=== PATIENT | male | born 1955 | race Caucasian/White ===

== ENCOUNTER 2017-10-30 03:06 | Inpatient (IN) | payer MEDICAID ==
[2017-10-30] VITALS (8 sets, daily range): BP systolic 120–146; BP diastolic 58–91
[~2017-10-30] VITALS: Ht 177.8 cm; Wt 81.8 kg
[2017-10-30] MEDS ORDERED: HYDROmorphone 1mg/ml Carpuject IVP ONE (03:15)
--- NOTE | 2017-10-30 03:19 | Emergency Room Report ---
History of Present Illness General Chief Complaint: Chest Pain Source: Patient, EMS Present Illness HPI Is a 62-year-old male with no past medical history. He presents with chief complaint of chest pain. Onset was about one half hours ago. He was walking from a restaurant when he started developing sharp pain in his left chest area. Rated to his neck. Was also short of breath. Pain is sharp 10 out of 10. No nausea no vomiting. No fever or chills. He was at [facility] last week for swelling in discoloration to his left leg. Workup is negative for DVT. Labs are unremarkable. He was treated with medication and given crutches. For his chest pain, onset was acute. EMS gave him aspirin and nitroglycerin without much relief. Allergies: Coded Allergies: No Known Allergies (Unverified , 10/30/17) Patient History Past Medical History: see triage record, old chart reviewed Past Surgical History: none Pertinent Family History: none Social History: Denies: smoking Immunizations: other Reviewed Nursing Documentation: PMH: Agreed, PSxH: Agreed Nursing Documentation-PMH Past Medical History: No Stated History Review of Systems Eye: Denies: eye pain, blurred vision ENT: Denies: ear pain, nose congestion, throat swelling Respiratory: Denies: cough, shortness of breath Cardiovascular: Reports: chest pain, Denies: palpitations Gastrointestinal: Denies: abdominal pain, diarrhea, nausea, vomiting Musculoskeletal: Denies: back pain, joint pain Skin: Denies: rash Neurological: Denies: headache, numbness Endocrine: Denies: increased thirst, increased urine Hematologic/Lymphatic: Denies: easy bruising All Other Systems: negative except mentioned in HPI Physical Exam Vital Signs Date Time Temp Pulse Resp B/P (MAP) Pulse Ox O2 Delivery O2 Flow Rate FiO2 10/30/17 03:06 97.5 111 20 170/98 99 Room Air vitals with tachycardia and high blood pressure Sp02 EP Interpretation: reviewed, normal General Appearance: well appearing, no apparent distress, alert Head: normocephalic, atraumatic Eyes: bilateral eye PERRL, bilateral eye EOMI ENT: hearing grossly normal, normal pharynx Neck: full range of motion, supple, no meningismus Respiratory: lungs clear, normal breath sounds, other - Left chest tender to palpation Cardiovascular #1: regular rate, rhythm, no murmur Gastrointestinal: normal bowel sounds, non tender, no mass, no organomegaly, no bruit, non-distended Musculoskeletal: back normal, gait/station normal, normal range of motion Psychiatric: mood/affect normal Skin: warm/dry Medical Decision Making Diagnostic Impression: Primary Impression: Pulmonary emboli Qualified Codes: I26.99 - Other pulmonary embolism without acute cor pulmonale Additional Impression: Pulmonary infarct ER Course Patient presents with acute onset of chest pain. CT scan showed small to moderate bilateral pulmonary emboli. He also has a left lower lobe pulmonary infarct. This would explain his pain to the left lower lobe area. He was at [facility] in October 13 for acute onset of left leg swelling and discoloration. Workup was negative including DVT study. Since then he's been on crutches for his pain. This may have cause immobilization resulting in a thrombus. He is hemodynamically stable with normal pulse and normal oxygenation. Lovenox given. Will admit for further workup. Lab Results Impression labs unremarkable EKG Diagnostic Results Rate: normal Rhythm: NSR ST Segments: no acute changes Rhythm Strip Diag. Results Rhythm Strip Time: 03:19 EP Interpretation: yes Rate: 93 Rhythm: NSR, no PVC's, no ectopy Chest X-Ray Diagnostic Results Chest X-Ray Diagnostic Results : Chest X-Ray Ordered: Yes # of Views/Limited/Complete: 1 View Indication: Chest Pain EP Interpretation: Yes Interpretation: no consolidation, no effusion, no pneumothorax, no acute cardiopulmonary disease Impression: No acute disease Electronically Signed by: Dada Figueroa MD CT/MRI/US Diagnostic Results CT/MRI/US Diagnostic Results : Imaging Test Ordered: CT chest Impression Read by radiologist. Small to moderate burn of bilateral pulmonary emboli. The floor and lateral pulmonary infarct. Last Vital Signs Date Time Temp Pulse Resp B/P (MAP) Pulse Ox O2 Delivery O2 Flow Rate FiO2 10/30/17 03:06 97.5 111 20 170/98 99 Room Air Status: improved Disposition: ADMITTED INPATIENT Condition: Serious DADA FIGUEROA M.D. Oct 30, 2017 03:19
[2017-10-30 03:39] LABS: BASOPHILS % (AUTO) 0.9 % (0.0-2.0); EOSINOPHILS % (AUTO) 0.7 % (0.0-3.0); HEMATOCRIT 45.3 % (42.0-52.0); HEMOGLOBIN 14.8 G/DL (14.2-18.0); LYMPHOCYTES % (AUTO) 13.1 % (20.0-45.0); MEAN CORPUSCULAR VOLUME 89 FL (80-99); MONOCYTES % (AUTO) 12.7 % (1.0-10.0); NEUTROPHILS % (AUTO) 72.6 % (45.0-75.0); PLATELET COUNT 340 K/UL (150-450); RED BLOOD COUNT 5.12 M/UL (4.70-6.10); RED CELL DISTRIBUTION WIDTH 11.7 % (11.6-14.8); WHITE BLOOD COUNT 11.7 K/UL (4.8-10.8)
[2017-10-30 03:41] LABS: APPEARANCE,URINE CLEAR; BILIRUBIN, URINE NEGATIVE (NEGATIVE); GLUCOSE, URINE (UA) NEGATIVE (NEGATIVE); KETONES,URINE NEGATIVE (NEGATIVE); LEUKOCYTE ESTERASE ,URINE NEGATIVE (NEGATIVE); NITRITE,URINE NEGATIVE (NEGATIVE); PH,URINE 6 (4.5-8.0); PROTEIN,URINE NEGATIVE (NEGATIVE); UROBILINOGEN,URINE NORMAL MG/DL (0.0-1.0)
[2017-10-30 03:42] LABS: COLOR,URINE YELLOW
[2017-10-30 03:50] LABS: ANION GAP 8 mmol/L (5-15); BLOOD UREA NITROGEN 14 mg/dL (7-18); CALCIUM 8.8 MG/DL (8.5-10.1); CARBON DIOXIDE 27 MMOL/L (21-32); CHLORIDE 101 MMOL/L (98-107); POTASSIUM 3.8 MMOL/L (3.5-5.1); SODIUM 136 MMOL/L (136-145)
[2017-10-30 04:04] LABS: CKMB 1.4 NG/ML (0.0-3.6); CREATINE KINASE 90 U/L (26-308)
[2017-10-30] MEDS ORDERED: Enoxaparin 80mg Inj SUBQ ONE (05:15)
[2017-10-30] MEDS ORDERED: NKM (05:35)
[2017-10-30] MEDS ORDERED: CEPHALEXIN500 MG ORAL (05:48)
[2017-10-30] MEDS ORDERED: Mylanta II UD 30ml ORAL PRN (06:45)
[2017-10-30] MEDS ORDERED: Miralax 17gm pkt ORAL PRN (06:45)
[2017-10-30] MEDS ORDERED: Zolpidem 5mg tab ORAL PRN (06:45)
[2017-10-30] MEDS ORDERED: LORazepam Inj 2mg/ml 1ml IV PRN (06:45)
[2017-10-30 08:11] LABS: BASOPHILS % (AUTO) 0.6 % (0.0-2.0); EOSINOPHILS % (AUTO) 0.7 % (0.0-3.0); HEMATOCRIT 43.4 % (42.0-52.0); LYMPHOCYTES % (AUTO) 16.8 % (20.0-45.0); MEAN CORPUSCULAR VOLUME 89 FL (80-99); MONOCYTES % (AUTO) 14.7 % (1.0-10.0); NEUTROPHILS % (AUTO) 67.1 % (45.0-75.0); PLATELET COUNT 290 K/UL (150-450); RED BLOOD COUNT 4.86 M/UL (4.70-6.10); RED CELL DISTRIBUTION WIDTH 11.7 % (11.6-14.8); WHITE BLOOD COUNT 10.2 K/UL (4.8-10.8)
--- NOTE | 2017-10-30 08:24 | Diagnostic Imaging Report ---
Indication: Chest pain Technique: Continuous helical transaxial imaging of the chest was obtained from the thoracic inlet to the upper abdomen during rapid intravenous contrast administration. Arterial phase of enhancement obtained. Coronal 2-D reformats were also obtained and maximum intensity projection images in multiple planes. Study obtained in a Siemens sensation [address] Automatic Exposure Control was utilized. Total Dose length Product (DLP): 1149.[address] Dose Index Volume (CTDIvol): 22.91 mGy Comparison: None Findings: Filling defects within bilateral pulmonary artery branch is demonstrated including right lower lobe and left lower lobe pulmonary artery branches extending into some of the segmental vessels. The main pulmonary artery and right and left pulmonary artery trunks appear clear. There is no evidence of right heart strain. Groundglass opacity noted at the periphery of the left lung base, nonspecific. Developing pulmonary infarct not excluded given the setting. No pleural effusion seen. No adenopathy or other abnormal fluid collections identified. Upper abdomen is unremarkable. Small left renal cyst noted incidentally. IMPRESSION: Bilateral pulmonary embolus as described above. [facility] has communicated the preliminary results to the Emergency Department. Their findings are largely concordant with this report. The CT scanner at [facility] is accredited by the [employer] and the scans are performed using dose optimization techniques as appropriate to a performed exam including Automatic Exposure control.
[2017-10-30] MEDS: Cephalexin 500mg cap ORAL SCH ×2 (09:33→19:53)
[2017-10-30] MEDS: Morphine Sulfate 2mg/ml Inj IVP PRN ×3 (09:35→19:53)
--- NOTE | 2017-10-30 10:11 | Diagnostic Imaging Report ---
Indication: Dyspnea Comparison: None A single view chest radiograph was obtained. Findings: Cardiomediastinal appearance is within normal limits for age. Pulmonary vascularity is appropriate. The diaphragmatic contour is smooth and costophrenic angles are sharp. No pleural effusions are identified. The bones are unremarkable. Impression: No acute findings
--- NOTE | 2017-10-30 11:48 | Consultation ---
History of Present Illness General Date patient seen: Oct 30, 2017 Chief Complaint: Chest Pain Referring physician: Dr. Florence Reason for Consultation: PE Present Illness HPI 62-year-old male with no past medical history presented with chief complaint of chest pain. Onset was about one half hours ago. He was at [facility] last week for swelling in discoloration to his left leg. Workup is negative for DVT. He had CT angio in ER showing bilateral pulmonary embolism. Allergies: Coded Allergies: No Known Allergies (Unverified , 10/30/17) Medication History Scheduled Cephalexin* (Keflex*), 500 MG ORAL EVERY 12 HOURS, (Reported) Patient History Healthcare decision maker Resuscitation status Advanced Directive on File Review of Systems All Other Systems: negative except mentioned in HPI Physical Exam General Appearance: WD/WN Lines, tubes and drains: peripheral HEENT: normocephalic, atraumatic Neck: non-tender, normal alignment Respiratory/Chest: chest wall non-tender, lungs clear Breasts: no masses Cardiovascular/Chest: normal peripheral pulses, regular rhythm, regularly irregular Abdomen: normal bowel sounds Genitourinary/Rectal: normal genital exam Last 24 Hour Vital Signs Date Time Temp Pulse Resp B/P (MAP) Pulse Ox O2 Delivery O2 Flow Rate FiO2 10/30/17 08:00 97.7 75 20 141/88 99 Room Air 10/30/17 06:20 Room Air 10/30/17 06:20 97.7 84 20 146/91 98 Room Air 10/30/17 06:12 97.5 90 13 120/91 100 Room Air 99 10/30/17 05:29 90 13 120/91 100 Room Air 10/30/17 03:32 84 20 Room Air 99 10/30/17 03:32 97.5 84 20 126/74 99 Room Air 10/30/17 03:06 97.5 111 20 170/98 99 Room Air Intake and Output 10/29/17 10/30/17 19:00 07:00 # Voids 1 Laboratory Tests Test 10/30/17 03:35 10/30/17 03:40 10/30/17 08:00 White Blood Count 11.7 K/UL (4.8-10.8) H 10.2 K/UL (4.8-10.8) Red Blood Count 5.12 M/UL (4.70-6.10) 4.86 M/UL (4.70-6.10) Hemoglobin 14.8 G/DL (14.2-18.0) 14.0 G/DL (14.2-18.0) L Hematocrit 45.3 % (42.0-52.0) 43.4 % (42.0-52.0) Mean Corpuscular Volume 89 FL (80-99) 89 FL (80-99) Mean Corpuscular Hemoglobin 28.8 PG (27.0-31.0) 28.8 PG (27.0-31.0) Mean Corpuscular Hemoglobin Concent 32.6 G/DL (32.0-36.0) 32.4 G/DL (32.0-36.0) Red Cell Distribution Width 11.7 % (11.6-14.8) 11.7 % (11.6-14.8) Platelet Count 340 K/UL (150-450) 290 K/UL (150-450) Mean Platelet Volume 6.6 FL (6.5-10.1) 7.1 FL (6.5-10.1) Neutrophils (%) (Auto) 72.6 % (45.0-75.0) 67.1 % (45.0-75.0) Lymphocytes (%) (Auto) 13.1 % (20.0-45.0) L 16.8 % (20.0-45.0) L Monocytes (%) (Auto) 12.7 % (1.0-10.0) H 14.7 % (1.0-10.0) H Eosinophils (%) (Auto) 0.7 % (0.0-3.0) 0.7 % (0.0-3.0) Basophils (%) (Auto) 0.9 % (0.0-2.0) 0.6 % (0.0-2.0) Sodium Level 136 MMOL/L (136-145) Potassium Level 3.8 MMOL/L (3.5-5.1) Chloride Level 101 MMOL/L (98-107) Carbon Dioxide Level 27 MMOL/L (21-32) Anion Gap 8 mmol/L (5-15) Blood Urea Nitrogen 14 mg/dL (7-18) Creatinine 1.0 MG/DL (0.55-1.30) Estimat Glomerular Filtration Rate > 60 mL/min (>60) Glucose Level 130 MG/DL (74-106) H Calcium Level 8.8 MG/DL (8.5-10.1) Total Creatine Kinase 90 U/L (26-308) Creatine Kinase MB 1.4 NG/ML (0.0-3.6) Creatine Kinase MB Relative Index 1.5 Troponin I 0.000 ng/mL (0.000-0.056) 0.000 ng/mL (0.000-0.056) Urine Color Yellow Urine Appearance Clear Urine pH 6 (4.5-8.0) Urine Specific [place] 1.015 (1.005-1.035) Urine Protein Negative (NEGATIVE) Urine Glucose (UA) Negative (NEGATIVE) Urine Ketones Negative (NEGATIVE) Urine Occult Blood Negative (NEGATIVE) Urine Nitrite Negative (NEGATIVE) Urine Bilirubin Negative (NEGATIVE) Urine Urobilinogen Normal MG/DL (0.0-1.0) Urine Leukocyte Esterase Negative (NEGATIVE) Urine Opiates Screen Negative (NEGATIVE) Urine Barbiturates Screen Negative (NEGATIVE) Phencyclidine (PCP) Screen Negative (NEGATIVE) Urine Amphetamines Screen Negative (NEGATIVE) Urine Benzodiazepines Screen Negative (NEGATIVE) Urine Cocaine Screen Negative (NEGATIVE) Urine Marijuana (THC) Screen Negative (NEGATIVE) Activated Partial Thromboplast Time 35 SEC (23-33) H Height (Feet): 5 Height (Inches): 10.00 Weight (Pounds): 170 Medications Current Medications Medications (Trade) Dose Ordered Sig/Rinku Route PRN Reason Start Time Stop Time Status Last Admin Dose Admin Acetaminophen (Tylenol) 650 mg Q4H PRN ORAL fever 10/30/17 06:45 11/29/17 06:44 Al Hydroxide/Mg Hydroxide (Mylanta II) 30 ml Q6H PRN ORAL dyspepsia 10/30/17 06:45 11/29/17 06:44 Cephalexin (Keflex) 500 mg Q12HR@0800,2000 ORAL 10/30/17 08:00 10/31/17 20:01 10/30/17 09:33 Dextrose (Dextrose 50%) STAT PRN IV Hypoglycemia 10/30/17 06:45 11/29/17 06:44 Heparin Sodium (Porcine) (Heparin 5000 units/ml) 5,000 units ONCE ONCE IV 10/30/17 17:00 10/30/17 17:01 Heparin Sodium/ Dextrose 500 ml @ 27.76 mls/ hr adjust per protocol IV 10/30/17 17:00 11/29/17 16:59 Lorazepam (Ativan 2mg/ml 1ml) 0.5 mg Q4H PRN IV For Anxiety 10/30/17 06:45 11/06/17 06:44 Morphine Sulfate (Morphine Sulfate) 1 mg Q4H PRN IVP For Pain 10/30/17 06:45 11/06/17 06:44 10/30/17 09:35 Ondansetron HCl (Zofran) 4 mg Q6H PRN IVP Nausea & Vomiting 10/30/17 06:45 11/29/17 06:44 Polyethylene Glycol (Miralax) 17 gm HSPRN PRN ORAL Constipation 10/30/17 06:45 11/29/17 06:44 Zolpidem Tartrate (Ambien) 5 mg HSPRN PRN ORAL Insomnia 10/30/17 06:45 11/06/17 06:44 Assessment/Plan Problem List: (1) Pulmonary emboli ICD Codes: I26.99 - Other pulmonary embolism without acute cor pulmonale SNOMED: [id number] Qualifiers: Qualified Codes: I26.99 - Other pulmonary embolism without acute cor pulmonale Assessment/Plan iv heparin vascular studies hematology work up to find out the etiology of the PE DANAE SHINE Oct 30, 2017 11:48
--- NOTE | 2017-10-30 12:37 | Cardiology Report ---
APPROVED REPORT EKG Measurement Heart [id number] Normal sinus rhythm Normal ECG
--- NOTE | 2017-10-30 12:49 | Cardiology Report ---
APPROVED REPORT EXAM: Two-dimensional and M-mode echocardiogram with Doppler and color Doppler. INDICATION Left ventricular function M-Mode DIMENSIONS IVSd0.7 (0.7-1.1cm)Left Atrium (MM)3.3 (1.6-4.0cm) LVDd4.8 (3.5-5.6cm)Aortic Root3.2 (2.0-3.7cm) PWd0.9 (0.7-1.1cm)Aortic Cusp Exc.2.0 (1.5-2.0cm) LVDs3.4 (2.5-4.0cm) PWs0.9 cm Normal left ventricular chamber size, systolic function and wall motion. Left ventricular ejection fraction estimated to be 55-60%. No evidence of left ventricular hypertrophy. No evidence of pericardial or pleural effusion. Mild bi-atrial enlargement by 2D. Focal aortic valve sclerosis with adequate cusp excursion. Thickened mitral valve leaflets with normal excursion. Mild mitral annulus and aortic root calcification. Pulmonic valve not well visualized. Normal tricuspid valve structure. IVC dilated at 2.3cm non-collapsible with respiration indicate increased RA pressure. A color flow and spectral Doppler study was performed and revealed: Trace aortic regurgitation. No mitral regurgitation. Mitral diastolic velocities suggest reduced left ventricular relaxation c/w diastolic dysfunction grade 1. Trace tricuspid regurgitation.
[2017-10-30] MEDS ORDERED: Heparin 25,000u/D5W 500ml 500 ML IV SCH (17:00)
[2017-10-30] MEDS ORDERED: Heparin 5000 units/ml inj IV ONE (17:00)
--- NOTE | 2017-10-30 18:30 | History and Physical Report ---
DATE OF ADMISSION: 10/30/2017 TIME SEEN: 2 p.m. CONSULTANTS: 1. Crow Arreola M.D. 2. Brian Francis M.D. 3. Ramon Maldonado D.P.M. CHIEF COMPLAINT: Bilateral PE and left toe injury. BRIEF HISTORY: This is a 62-year-old male, who lives at home, presents with substernal chest pain for one day, came to [place] ER and slightly short of breath. He came in to [place], diagnosed with bilateral PE, and admitted to [facility] for further care. Currently, he is slightly anxious in bed, oriented x3, and in no acute distress. PAST MEDICAL HISTORY: Includes recent left toe injury. PAST SURGICAL HISTORY: Shoulder bilaterally. MEDICATIONS: Include heparin, Keflex, Tylenol, morphine, MiraLAX, Zofran, Ambien, and Mylanta. ALLERGIES: Denies. SOCIAL HISTORY: No smoking. Occasional alcohol. No intravenous drug abuse. FAMILY HISTORY: Noncontributory. REVIEW OF SYSTEMS: Slight chest pain. Slightly short of breath. No nausea, vomiting, or diarrhea. PHYSICAL EXAMINATION: GENERAL: Slightly anxious in bed, oriented x3, and in no acute distress. VITAL SIGNS: Temperature 97, pulse 80, respirations 20, and blood pressure 123/74. CARDIOVASCULAR: No murmurs. LUNGS: Distant and clear. ABDOMEN: Bowel sounds positive. Nontender. Nondistended. EXTREMITIES: No cyanosis, clubbing, or edema. Left big toenail slightly bruised, slightly swollen, and red. NEUROLOGIC: The patient moves all extremities. Slightly weak. LABORATORY DATA: CBC is normal. BMP show glucose 130, otherwise BMP is normal. INR, PTT is 35. Urine tox is negative. Urinalysis is negative. ASSESSMENT: 1. Bilateral pulmonary embolism. 2. Left toe injury. 3. Chest pain. 4. Shortness of breath. PLAN: 1. O2 and pulmonary treatment as needed. 2. Antibiotics as ordered. 3. Wound care. 4. Anticoagulate per Hematology. 5. Dr. Arreola, Dr. Francis, and Dr. Maldonado to consult. 6. We will continue to follow this patient. Jama Florence D.O. DR: ARSH JOB#: [id number] CC:
[2017-10-30] MEDS ORDERED: Warfarin Sodium 7.5mg ORAL ONE (23:00)
[2017-10-31] VITALS: BP 128/89
[2017-10-31] MEDS ORDERED: Heparin Sod 1000 units/ml 10ml IV ONE (01:30)
[2017-10-31] MEDS: Heparin 25,000u/D5W 500ml 500 ML IV SCH ×2 (01:34→12:53)
[2017-10-31 04:00] VITALS: BP 125/77
--- NOTE | 2017-10-31 06:47 | Consultation ---
DATE OF CONSULTATION: 10/30/2017 HEMATOLOGY/ONCOLOGY CONSULTATION CONSULTING PHYSICIAN: Brian Francis M.D. REQUESTING PHYSICIAN: Jama Florence M.D. REASON FOR CONSULTATION: Evaluation of pulmonary emboli. IDENTIFICATION: Dear Dr. Jama Florence, The patient is a pleasant 62-year-old male with no past medical history, at this time presents with chest pain as a chief complaint, 00:30 onset about one and half hours ago at [facility] last week, discoloration of the left leg, negative DVT. Workup in the ER, he had a CAT scan, which showed bilateral pulmonary emboli. Infectious Disease Service was consulted for further evaluation and treatment as well as Pulmonary team. PAST MEDICAL HISTORY: As noted above, left 00:57 injury. PAST SURGICAL HISTORY: 00:59 shoulder repair. MEDICATIONS: Heparin, Keflex, Tylenol, morphine, MiraLAX, Zofran, Mylanta, and Ambien. ALLERGIES: No known drug allergies. SOCIAL HISTORY: No alcohol, tobacco, or illicit drug use. FAMILY HISTORY: Noncontributory. REVIEW OF SYSTEMS: PULMONARY: 01:11 chest pain, otherwise negative. A 12-point review of systems was completed, otherwise negative. PHYSICAL EXAMINATION: VITAL SIGNS: Reviewed. GENERAL: No acute distress. PULMONARY: Decreased breath sounds. CARDIOVASCULAR: Regular rate. No S3 or S4. ABDOMEN: Soft, nontender, and nondistended. EXTREMITIES: A 1+ edema. LABORATORY DATA: WBC 10.2, hemoglobin 01:26, hematocrit 01:27, and platelet count 290,000. INR reviewed. PTT is 35. Glucose 130. Troponin is 0.020. ASSESSMENT AND RECOMMENDATIONS: 1. Pulmonary emboli, currently is on heparin drip. Consider to begin the patient on Coumadin with INR goal between 2 and 3. Outpatient management. Also obtain hypercoagulable panel. 2. Anemia, secondary to chronic disease, mild. 3. Coagulopathy, secondary to use of Coumadin. 4. Left 02:12 injury in the past. I appreciate the consultation. Thank you for consultation. Brian Francis M.D. DR: OREN JOB#: [id number] CC:
[2017-10-31 07:42] LABS: BASOPHILS % (AUTO) 0.8 % (0.0-2.0); EOSINOPHILS % (AUTO) 0.6 % (0.0-3.0); HEMATOCRIT 45.7 % (42.0-52.0); HEMOGLOBIN 14.6 G/DL (14.2-18.0); LYMPHOCYTES % (AUTO) 12.1 % (20.0-45.0); MEAN CORPUSCULAR VOLUME 89 FL (80-99); MONOCYTES % (AUTO) 13.5 % (1.0-10.0); NEUTROPHILS % (AUTO) 72.9 % (45.0-75.0); PLATELET COUNT 302 K/UL (150-450); RED BLOOD COUNT 5.15 M/UL (4.70-6.10); RED CELL DISTRIBUTION WIDTH 11.9 % (11.6-14.8); WHITE BLOOD COUNT 11.1 K/UL (4.8-10.8)
[2017-10-31 08:00] VITALS: BP 142/81
[2017-10-31 08:04] LABS: ALANINE AMINOTRANSFERASE 17 U/L (12-78); ALBUMIN 2.8 G/DL (3.4-5.0); ALBUMIN/GLOBULIN RATIO 0.7 (1.0-2.7); ALKALINE PHOSPHATASE 74 U/L (46-116); ANION GAP 7 mmol/L (5-15); ASPARTATE AMINO TRANSFERASE 21 U/L (15-37); BILIRUBIN,TOTAL 0.6 MG/DL (0.2-1.0); BLOOD UREA NITROGEN 9 mg/dL (7-18); CALCIUM 8.8 MG/DL (8.5-10.1); CARBON DIOXIDE 26 MMOL/L (21-32); CHLORIDE 103 MMOL/L (98-107); CHOLESTEROL 167 MG/DL (< 200); CREATININE 0.9 MG/DL (0.55-1.30); HDL CHOLESTEROL 55 MG/DL (40-60); POTASSIUM 4.2 MMOL/L (3.5-5.1); SODIUM 136 MMOL/L (136-145); TRIGLYCERIDES 51 MG/DL (30-150)
[2017-10-31] MEDS: Cephalexin 500mg cap ORAL SCH ×2 (08:10→21:17)
[2017-10-31 12:00] VITALS: BP 136/78
--- NOTE | 2017-10-31 12:48 | Pulmonology Progress Note ---
Assessment/Plan Problems: (1) Pulmonary emboli Assessment/Plan on coumadin add flexeril pain control Subjective Interval Events: c/o spasm at left chest side Allergies: Coded Allergies: No Known Allergies (Unverified , 10/30/17) Objective Last 24 Hour Vital Signs Date Time Temp Pulse Resp B/P (MAP) Pulse Ox O2 Delivery O2 Flow Rate FiO2 10/31/17 08:00 97.5 83 19 142/81 97 Room Air 10/31/17 08:00 84 10/31/17 04:00 74 10/31/17 04:00 98.2 79 20 125/77 98 Room Air 10/31/17 01:11 75 18 Room Air 10/31/17 00:00 98.0 79 17 128/89 95 10/31/17 00:00 69 10/30/17 20:43 98.4 10/30/17 20:01 99.0 76 18 127/58 96 Room Air 10/30/17 20:00 98.4 74 18 144/91 99 10/30/17 20:00 78 10/30/17 16:00 98.4 72 20 140/81 97 Room Air 10/30/17 16:00 90 Intake and Output 10/30/17 10/31/17 19:00 07:00 Intake Total 270 ml 527.76 ml Output Total 1900 ml Balance -1630 ml 527.76 ml Intake Oral 270 ml 500 ml IV Total 27.76 ml Output Urine Total 1900 ml # Voids 3 Objective General Appearance: wn/wd/wh Lines, tubes and drains: peripheral HEENT: normocephalic, anicteric Neck: non-tender, normal alignment Respiratory/Chest: chest wall non-tender, lungs clear Breasts: no masses Cardiovascular/Chest: normal peripheral pulses Abdomen: normal bowel sounds Genitourinary/Rectal: normal genital exam Extremities: normal range of motion General Appearance: WD/WN Laboratory Tests 10/30/17 21:15: Hemoglobin A [Pending], Hemoglobin A2 [Pending], Hemoglobin C [Pending], Hemoglobin F () [Pending], Hemoglobin S [Pending], Variant Hemoglobin [ Pending], Hemoglobin Electrophoresis Interp [Pending], Hemoglobin Interpretation [Pending], Hemoglobin Solubility [Pending], Prothrombin Time 10.4 , Prothromb Time International Ratio 1.0, Protein C Activity [Pending], Protein S Antigen [Pending], Free Protein S [Pending], Anti-Thrombin III Activity [ Pending], Factor V Mutation [Pending], Prothrombin Gene Mutation [Pending], Prothrombin Gene Shared Component [Pending], Anti-Cardiolipin IgM Antibody [ Pending] 10/31/17 00:30: Activated Partial Thromboplast Time 56H 10/31/17 07:25: Prothrombin Time 10.6, Prothromb Time International Ratio 1.0, Activated Partial Thromboplast Time 74H, White Blood Count 11.1H, Red Blood Count 5.15, Hemoglobin 14.6, Hematocrit 45.7, Mean Corpuscular Volume 89, Mean Corpuscular Hemoglobin 28.3, Mean Corpuscular Hemoglobin Concent 32.0, Red Cell Distribution Width 11.9, Platelet Count 302, Mean Platelet Volume 6.8, Neutrophils (%) (Auto) 72.9, Lymphocytes (%) (Auto) 12.1L, Monocytes (%) (Auto) 13.5H, Eosinophils (%) (Auto) 0.6, Basophils (%) (Auto) 0.8, Sodium Level 136, Potassium Level 4.2, Chloride Level 103, Carbon Dioxide Level 26, Anion Gap 7, Blood Urea Nitrogen 9, Creatinine 0.9, Estimat Glomerular Filtration Rate > 60, Glucose Level 107H, Calcium Level 8.8, Total Bilirubin 0.6, Aspartate Amino Transf (AST/SGOT) 21, Alanine Aminotransferase (ALT/SGPT) 17, Alkaline Phosphatase 74, Troponin I 0.017, Total Protein 7.0, Albumin 2.8L, Globulin 4.2 , Albumin/Globulin Ratio 0.7L, Triglycerides Level 51, Cholesterol Level 167, LDL Cholesterol 106H, HDL Cholesterol 55, Cholesterol/HDL Ratio 3.0L Current Medications Medications (Trade) Dose Ordered Sig/Rinku Route PRN Reason Start Time Stop Time Status Last Admin Dose Admin Acetaminophen (Tylenol) 650 mg Q4H PRN ORAL fever 10/30/17 06:45 11/29/17 06:44 Al Hydroxide/Mg Hydroxide (Mylanta II) 30 ml Q6H PRN ORAL dyspepsia 10/30/17 06:45 11/29/17 06:44 Cephalexin (Keflex) 500 mg Q12HR@0800,2000 ORAL 10/30/17 08:00 10/31/17 20:01 10/31/17 08:10 Dextrose (Dextrose 50%) STAT PRN IV Hypoglycemia 10/30/17 06:45 11/29/17 06:44 Heparin Sodium/ Dextrose 500 ml @ 30.844 mls/ hr adjust per protocol IV 10/31/17 01:30 11/29/17 16:59 10/31/17 01:34 Lorazepam (Ativan 2mg/ml 1ml) 0.5 mg Q4H PRN IV For Anxiety 10/30/17 06:45 11/06/17 06:44 Morphine Sulfate (Morphine Sulfate) 1 mg Q4H PRN IVP For Pain 10/30/17 06:45 11/06/17 06:44 10/30/17 19:53 Ondansetron HCl (Zofran) 4 mg Q6H PRN IVP Nausea & Vomiting 10/30/17 06:45 11/29/17 06:44 Polyethylene Glycol (Miralax) 17 gm HSPRN PRN ORAL Constipation 10/30/17 06:45 11/29/17 06:44 Warfarin Sodium (Coumadin per pharmacy) 1 ea DAILY PRN MISC Per rx protocol 10/30/17 20:45 11/29/17 20:44 Warfarin Sodium (Coumadin) 7.5 mg COUMADIN ONCE ORAL 10/31/17 17:00 10/31/17 17:01 Zolpidem Tartrate (Ambien) 5 mg HSPRN PRN ORAL Insomnia 10/30/17 06:45 11/06/17 06:44 DANAE SHINE Oct 31, 2017 12:48
[2017-10-31] MEDS: Cyclobenzaprine 10mg Tab ORAL SCH ×2 (13:02→18:00)
[2017-10-31 16:00] VITALS: BP 134/78
[2017-10-31] MEDS ORDERED: Warfarin Sodium 7.5mg ORAL ONE (17:00)
[2017-10-31 20:00] VITALS: BP 119/24
--- NOTE | 2017-10-31 20:54 | General Progress Note ---
Assessment/Plan Problem List: (1) Pulmonary infarct ICD Codes: I26.99 - Other pulmonary embolism without acute cor pulmonale SNOMED: 97595368 (2) Pulmonary emboli ICD Codes: I26.99 - Other pulmonary embolism without acute cor pulmonale SNOMED: 54993345 Qualifiers: Qualified Codes: I26.99 - Other pulmonary embolism without acute cor pulmonale Status: progressing Assessment/Plan edema le pulmonary emboli anti coagulation per heme/onc and pulmonary Subjective ROS Limited/Unobtainable: Yes Allergies: Coded Allergies: No Known Allergies (Unverified , 10/30/17) Objective Last 24 Hour Vital Signs Date Time Temp Pulse Resp B/P (MAP) Pulse Ox O2 Delivery O2 Flow Rate FiO2 10/31/17 20:08 75 18 Room Air 10/31/17 16:00 83 10/31/17 16:00 97.6 81 19 134/78 100 Room Air 10/31/17 14:01 97.5 10/31/17 12:00 97.1 81 18 136/78 100 Room Air 10/31/17 12:00 82 10/31/17 08:00 97.5 83 19 142/81 97 Room Air 10/31/17 08:00 84 10/31/17 04:00 74 10/31/17 04:00 98.2 79 20 125/77 98 Room Air 10/31/17 01:11 75 18 Room Air 10/31/17 00:00 98.0 79 17 128/89 95 10/31/17 00:00 69 Intake and Output 10/30/17 10/31/17 19:00 07:00 Intake Total 270 ml 558.604 ml Output Total 1900 ml Balance -1630 ml 558.604 ml Intake Oral 270 ml 500 ml IV Total 58.604 ml Output Urine Total 1900 ml # Voids 3 Laboratory Tests 10/30/17 21:15: Hemoglobin A [Pending], Hemoglobin A2 [Pending], Hemoglobin C [Pending], Hemoglobin F () [Pending], Hemoglobin S [Pending], Variant Hemoglobin [ Pending], Hemoglobin Electrophoresis Interp [Pending], Hemoglobin Interpretation [Pending], Hemoglobin Solubility [Pending], Prothrombin Time 10.4 , Prothromb Time International Ratio 1.0, Protein C Activity [Pending], Protein S Antigen [Pending], Free Protein S [Pending], Anti-Thrombin III Activity [ Pending], Factor V Mutation [Pending], Prothrombin Gene Mutation [Pending], Prothrombin Gene Shared Component [Pending], Anti-Cardiolipin IgM Antibody [ Pending] 10/31/17 00:30: Activated Partial Thromboplast Time 56H 10/31/17 07:25: Prothrombin Time 10.6, Prothromb Time International Ratio 1.0, Activated Partial Thromboplast Time 74H, White Blood Count 11.1H, Red Blood Count 5.15, Hemoglobin 14.6, Hematocrit 45.7, Mean Corpuscular Volume 89, Mean Corpuscular Hemoglobin 28.3, Mean Corpuscular Hemoglobin Concent 32.0, Red Cell Distribution Width 11.9, Platelet Count 302, Mean Platelet Volume 6.8, Neutrophils (%) (Auto) 72.9, Lymphocytes (%) (Auto) 12.1L, Monocytes (%) (Auto) 13.5H, Eosinophils (%) (Auto) 0.6, Basophils (%) (Auto) 0.8, Sodium Level 136, Potassium Level 4.2, Chloride Level 103, Carbon Dioxide Level 26, Anion Gap 7, Blood Urea Nitrogen 9, Creatinine 0.9, Estimat Glomerular Filtration Rate > 60, Glucose Level 107H, Calcium Level 8.8, Total Bilirubin 0.6, Aspartate Amino Transf (AST/SGOT) 21, Alanine Aminotransferase (ALT/SGPT) 17, Alkaline Phosphatase 74, Troponin I 0.017, Total Protein 7.0, Albumin 2.8L, Globulin 4.2 , Albumin/Globulin Ratio 0.7L, Triglycerides Level 51, Cholesterol Level 167, LDL Cholesterol 106H, HDL Cholesterol 55, Cholesterol/HDL Ratio 3.0L Height (Feet): 5 Height (Inches): 10.00 Weight (Pounds): 170 Yolanda Littlejohn MD Oct 31, 2017 20:54
--- NOTE | 2017-10-31 23:35 | General Progress Note ---
Assessment/Plan Status: stable Assessment/Plan 1. Pulmonary emboli, currently is on heparin drip. --> Consider to begin the patient on Coumadin with INR goal between 2 and 3. --> Outpatient management. --> Also obtain hypercoagulable panel. 2. Anemia, secondary to chronic disease, mild. --> Hemoglobin stable, does not need blood transfusion at the moment. 3. Coagulopathy, secondary to use of Coumadin. Subjective Date patient seen: Oct 31, 2017 Constitutional: Denies: no symptoms, chills, diaphoresis, fever, malaise, weakness, other HEENT: Denies: no symptoms, eye pain, blurred vision, tearing, double vision, ear pain, ear discharge, nose pain, nose congestion, throat pain, throat swelling, mouth pain, mouth swelling, other Cardiovascular: Denies: no symptoms, chest pain, edema, irregular heart rate, lightheadedness, palpitations, syncope, other Respiratory: Denies: no symptoms, cough, orthopnea, shortness of breath, SOB with excertion, SOB at rest, sputum, stridor, wheezing, other Gastrointestinal/Abdominal: Denies: no symptoms, abdomen distended, abdominal pain, black stools, tarry stools, blood in stool, constipated, diarrhea, difficulty swallowing, nausea, poor appetite, poor fluid intake, rectal bleeding , vomiting, other Genitourinary: Denies: no symptoms, burning, discharge, frequency, flank pain, hematuria, incontinence, pain, urgency, other Allergies: Coded Allergies: No Known Allergies (Unverified , 10/30/17) Subjective On anticoagulation measures. H/H stable. Objective Last 24 Hour Vital Signs Date Time Temp Pulse Resp B/P (MAP) Pulse Ox O2 Delivery O2 Flow Rate FiO2 10/31/17 20:08 75 18 Room Air 10/31/17 20:00 98.6 75 20 119/24 96 Room Air 10/31/17 16:00 83 10/31/17 16:00 97.6 81 19 134/78 100 Room Air 10/31/17 14:01 97.5 10/31/17 12:00 97.1 81 18 136/78 100 Room Air 10/31/17 12:00 82 10/31/17 08:00 97.5 83 19 142/81 97 Room Air 1/19/18 08:00 84 10/31/17 04:00 74 10/31/17 04:00 98.2 79 20 125/77 98 Room Air 10/31/17 01:11 75 18 Room Air 10/31/17 00:00 98.0 79 17 128/89 95 10/31/17 00:00 69 Intake and Output 10/30/17 10/31/17 19:00 07:00 Intake Total 270 ml 558.604 ml Output Total 1900 ml Balance -1630 ml 558.604 ml Intake Oral 270 ml 500 ml IV Total 58.604 ml Output Urine Total 1900 ml # Voids 3 Laboratory Tests 10/31/17 00:30: Activated Partial Thromboplast Time 56H 10/31/17 07:25: Activated Partial Thromboplast Time 74H, White Blood Count 11.1H, Red Blood Count 5.15, Hemoglobin 14.6, Hematocrit 45.7, Mean Corpuscular Volume 89, Mean Corpuscular Hemoglobin 28.3, Mean Corpuscular Hemoglobin Concent 32.0, Red Cell Distribution Width 11.9, Platelet Count 302, Mean Platelet Volume 6.8, Neutrophils (%) (Auto) 72.9, Lymphocytes (%) (Auto) 12.1L, Monocytes (%) (Auto) 13.5H, Eosinophils (%) (Auto) 0.6, Basophils (%) (Auto) 0.8, Prothrombin Time 10.6, Prothromb Time International Ratio 1.0, Sodium Level 136, Potassium Level 4.2, Chloride Level 103, Carbon Dioxide Level 26, Anion Gap 7, Blood Urea Nitrogen 9, Creatinine 0.9, Estimat Glomerular Filtration Rate > 60, Glucose Level 107H, Calcium Level 8.8, Total Bilirubin 0.6, Aspartate Amino Transf (AST/ SGOT) 21, Alanine Aminotransferase (ALT/SGPT) 17, Alkaline Phosphatase 74, Troponin I 0.017, Total Protein 7.0, Albumin 2.8L, Globulin 4.2, Albumin/ Globulin Ratio 0.7L, Triglycerides Level 51, Cholesterol Level 167, LDL Cholesterol 106H, HDL Cholesterol 55, Cholesterol/HDL Ratio 3.0L Height (Feet): 5 Height (Inches): 10.00 Weight (Pounds): 170 General Appearance: no apparent distress Neck: supple Cardiovascular: normal rate, regular rhythm Respiratory/Chest: decreased breath sounds Abdomen: soft Kleynberg,Brian L. Oct 31, 2017 23:35
[2017-11-01 04:25] VITALS: BP 120/56
[2017-11-01] MEDS: Heparin 25,000u/D5W 500ml 500 ML IV SCH ×3 (05:29→20:08)
[2017-11-01] MEDS ORDERED: Heparin Sod 1000 units/ml 10ml IV ONE (06:00)
[2017-11-01] MEDS ORDERED: Heparin 5000 units/ml inj IV ONE (06:15)
--- NOTE | 2017-11-01 07:24 | Pulmonology Progress Note ---
Assessment/Plan Assessment/Plan ASSESSMENT Bilateral pulmonary emboli Possible developing pulmonary infarct-unlikely chest pain 2 to bilateral PE PLAN OF CARE Tele CTA chest with bilateral PE and possible developing pulm infarct heparin gtt and Coumadin to bridge to therapeutic INR , still subtherapeutic heme follows O2 prn HHN prn serial troponin negative lipid panel with elevated LDL-106, counseled on low fat low cholesterol diet pain management, Flexeril added to existing regimen ( not helping) started [place] prn ( patient reluctant to take Morphine) ECHO with pEF 55-60%, no LVH tox screen negative anticardiolipin IgM Ab pending case discussed and evaluated by supervising physician Subjective Allergies: Coded Allergies: No Known Allergies (Unverified , 10/30/17) Subjective with chest pain, intermittent SOB on heparin gtt Objective Last 24 Hour Vital Signs Date Time Temp Pulse Resp B/P (MAP) Pulse Ox O2 Delivery O2 Flow Rate FiO2 11/01/17 04:25 98.2 70 20 120/56 98 Room Air 11/01/17 04:00 73 11/01/17 00:00 80 10/31/17 20:08 75 18 Room Air 10/31/17 20:00 98.6 75 20 119/24 96 Room Air 10/31/17 20:00 74 10/31/17 16:00 83 10/31/17 16:00 97.6 81 19 134/78 100 Room Air 10/31/17 14:01 97.5 10/31/17 12:00 97.1 81 18 136/78 100 Room Air 10/31/17 12:00 82 10/31/17 08:00 97.5 83 19 142/81 97 Room Air 10/31/17 08:00 84 Intake and Output 10/31/17 11/01/17 19:00 07:00 Intake Total 1047.284 ml 277.636 ml Output Total 950 ml 1050 ml Balance 97.284 ml -772.364 ml Intake Oral 708 ml IV Total 339.284 ml 277.636 ml Output Urine Total 950 ml 1050 ml # Voids 1 General Appearance: WD/WN, no acute distress HEENT: normocephalic, atraumatic, anicteric, mucous membranes moist Respiratory/Chest: lungs clear, no respiratory distress, no accessory muscle use Cardiovascular: normal peripheral pulses, normal rate - SR on tele, no JVD Abdomen: normal bowel sounds, soft, non tender, non distended Extremities: no edema, pedal pulses normal Neurologic/Psychiatric: no motor/sensory deficits, alert, oriented x 3, responsive, normal mood/affect Musculoskeletal: normal muscle bulk Laboratory Tests 10/31/17 07:25: White Blood Count 11.1H, Red Blood Count 5.15, Hemoglobin 14.6, Hematocrit 45.7 , Mean Corpuscular Volume 89, Mean Corpuscular Hemoglobin 28.3, Mean Corpuscular Hemoglobin Concent 32.0, Red Cell Distribution Width 11.9, Platelet Count 302, Mean Platelet Volume 6.8, Neutrophils (%) (Auto) 72.9, Lymphocytes (% ) (Auto) 12.1L, Monocytes (%) (Auto) 13.5H, Eosinophils (%) (Auto) 0.6, Basophils (%) (Auto) 0.8, Prothrombin Time 10.6, Prothromb Time International Ratio 1.0, Activated Partial Thromboplast Time 74H, Sodium Level 136, Potassium Level 4.2, Chloride Level 103, Carbon Dioxide Level 26, Anion Gap 7, Blood Urea Nitrogen 9, Creatinine 0.9, Estimat Glomerular Filtration Rate > 60, Glucose Level 107H, Calcium Level 8.8, Total Bilirubin 0.6, Aspartate Amino Transf (AST/ SGOT) 21, Alanine Aminotransferase (ALT/SGPT) 17, Alkaline Phosphatase 74, Troponin I 0.017, Total Protein 7.0, Albumin 2.8L, Globulin 4.2, Albumin/ Globulin Ratio 0.7L, Triglycerides Level 51, Cholesterol Level 167, LDL Cholesterol 106H, HDL Cholesterol 55, Cholesterol/HDL Ratio 3.0L 11/01/17 04:00: Prothrombin Time 10.8, Prothromb Time International Ratio 1.0, Activated Partial Thromboplast Time 55H, Troponin I 0.000 Current Medications Medications (Trade) Dose Ordered Sig/Rinku Route PRN Reason Start Time Stop Time Status Last Admin Dose Admin Acetaminophen (Tylenol) 650 mg Q4H PRN ORAL fever 10/30/17 06:45 11/29/17 06:44 Al Hydroxide/Mg Hydroxide (Mylanta II) 30 ml Q6H PRN ORAL dyspepsia 10/30/17 06:45 11/29/17 06:44 Cyclobenzaprine HCl (Flexeril) 10 mg THREE TIMES A DAY ORAL 10/31/17 13:00 11/30/17 12:59 10/31/17 13:02 Dextrose (Dextrose 50%) STAT PRN IV Hypoglycemia 10/30/17 06:45 11/29/17 06:44 Heparin Sodium/ Dextrose 500 ml @ 33.929 mls/ hr adjust per protocol IV 11/01/17 05:45 11/29/17 16:59 11/01/17 06:20 Lorazepam (Ativan 2mg/ml 1ml) 0.5 mg Q4H PRN IV For Anxiety 10/30/17 06:45 11/06/17 06:44 Morphine Sulfate (Morphine Sulfate) 1 mg Q4H PRN IVP For Pain 10/30/17 06:45 11/06/17 06:44 10/30/17 19:53 Ondansetron HCl (Zofran) 4 mg Q6H PRN IVP Nausea & Vomiting 10/30/17 06:45 11/29/17 06:44 Polyethylene Glycol (Miralax) 17 gm HSPRN PRN ORAL Constipation 10/30/17 06:45 11/29/17 06:44 Warfarin Sodium (Coumadin per pharmacy) 1 ea DAILY PRN MISC Per rx protocol 10/30/17 20:45 11/29/17 20:44 Zolpidem Tartrate (Ambien) 5 mg HSPRN PRN ORAL Insomnia 10/30/17 06:45 11/06/17 06:44 Kevon (Noé)Ana Lilia NP Nov 01, 2017 07:23
[2017-11-01 08:00] VITALS: BP 130/83
[2017-11-01] MEDS: Cyclobenzaprine 10mg Tab ORAL SCH ×2 (09:00→09:12)
[2017-11-01 12:00] VITALS: BP 126/81
[2017-11-01] MEDS ORDERED: Morphine Sulfate 2mg/ml Inj IVP PRN (12:30)
--- NOTE | 2017-11-01 15:48 | General Progress Note ---
Assessment/Plan Problem List: (1) Pulmonary infarct ICD Codes: I26.99 - Other pulmonary embolism without acute cor pulmonale SNOMED: [id number] (2) Pulmonary emboli ICD Codes: I26.99 - Other pulmonary embolism without acute cor pulmonale SNOMED: 34153633 Qualifiers: Qualified Codes: I26.99 - Other pulmonary embolism without acute cor pulmonale Status: progressing Assessment/Plan edema le pulmonary embolim chest wall pain afebrile no bleeding Subjective ROS Limited/Unobtainable: Yes Allergies: Coded Allergies: No Known Allergies (Unverified , 10/30/17) Objective Last 24 Hour Vital Signs Date Time Temp Pulse Resp B/P (MAP) Pulse Ox O2 Delivery O2 Flow Rate FiO2 11/01/17 12:00 70 11/01/17 12:00 97.7 76 20 126/81 98 Room Air 11/01/17 08:00 97.3 73 20 130/83 96 Room Air 11/01/17 08:00 87 11/01/17 07:57 88 18 Room Air 21 11/01/17 04:25 98.2 70 20 120/56 98 Room Air 11/01/17 04:00 73 11/01/17 00:00 80 10/31/17 20:08 75 18 Room Air 10/31/17 20:00 98.6 75 20 119/24 96 Room Air 10/31/17 20:00 74 10/31/17 16:00 83 10/31/17 16:00 97.6 81 19 134/78 100 Room Air Intake and Output 10/31/17 11/01/17 19:00 07:00 Intake Total 1047.284 ml 277.636 ml Output Total 950 ml 1050 ml Balance 97.284 ml -772.364 ml Intake Oral 708 ml IV Total 339.284 ml 277.636 ml Output Urine Total 950 ml 1050 ml # Voids 1 Laboratory Tests 11/01/17 04:00: Prothrombin Time 10.8, Prothromb Time International Ratio 1.0, Activated Partial Thromboplast Time 55H, Troponin I 0.000 11/01/17 12:25: Activated Partial Thromboplast Time 68H Height (Feet): 5 Height (Inches): 10.00 Weight (Pounds): 170 Yolanda Littlejohn MD Nov 01, 2017 15:48
[2017-11-01 16:00] VITALS: BP 125/71
[2017-11-01] MEDS ORDERED: Warfarin Sodium 10mg ORAL ONE (17:00)
[2017-11-01] MEDS: Norco 5mg/325mg tab ORAL PRN (20:03)
[2017-11-01 20:25] VITALS: BP 117/65
--- NOTE | 2017-11-01 23:06 | General Progress Note ---
Assessment/Plan Status: stable Assessment/Plan #. Anemia, secondary to chronic disease, mild. --> Hemoglobin stable, does not need blood transfusion at the moment. --> Trend cbc daily. --> Hemoglobin goal >7 #. Pulmonary emboli, currently is on heparin drip. --> Consider to begin the patient on Coumadin with INR goal between 2 and 3. --> Outpatient management. --> Hypercoagulable panel pending. #. Coagulopathy, secondary to use of Coumadin. Subjective Date patient seen: Nov 01, 2017 Constitutional: Denies: no symptoms, chills, diaphoresis, fever, malaise, weakness, other HEENT: Denies: no symptoms, eye pain, blurred vision, tearing, double vision, ear pain, ear discharge, nose pain, nose congestion, throat pain, throat swelling, mouth pain, mouth swelling, other Cardiovascular: Denies: no symptoms, chest pain, edema, irregular heart rate, lightheadedness, palpitations, syncope, other Respiratory: Denies: no symptoms, cough, orthopnea, shortness of breath, SOB with excertion, SOB at rest, sputum, stridor, wheezing, other Gastrointestinal/Abdominal: Denies: no symptoms, abdomen distended, abdominal pain, black stools, tarry stools, blood in stool, constipated, diarrhea, difficulty swallowing, nausea, poor appetite, poor fluid intake, rectal bleeding , vomiting, other Hematologic/Lymphatic: Reports: anemia Allergies: Coded Allergies: No Known Allergies (Unverified , 10/30/17) Subjective On anticoagulation measures. H/H stable. No active bleeding. Feeling better. Objective Last 24 Hour Vital Signs Date Time Temp Pulse Resp B/P (MAP) Pulse Ox O2 Delivery O2 Flow Rate FiO2 11/01/17 20:25 97.2 19 19 117/65 95 Room Air 11/01/17 20:00 86 11/01/17 19:26 76 20 Room Air 21 11/01/17 16:00 69 11/01/17 16:00 98.2 76 20 125/71 97 Room Air 11/01/17 12:00 70 11/01/17 12:00 97.7 76 20 126/81 98 Room Air 11/01/17 08:00 97.3 73 20 130/83 96 Room Air 11/01/17 08:00 87 11/01/17 07:57 88 18 Room Air 21 11/01/17 04:25 98.2 70 20 120/56 98 Room Air 11/01/17 04:00 73 11/01/17 00:00 80 Intake and Output 10/31/17 11/01/17 19:00 07:00 Intake Total 1047.284 ml 277.636 ml Output Total 950 ml 1050 ml Balance 97.284 ml -772.364 ml Intake Oral 708 ml IV Total 339.284 ml 277.636 ml Output Urine Total 950 ml 1050 ml # Voids 1 Laboratory Tests 11/01/17 04:00: Prothrombin Time 10.8, Prothromb Time International Ratio 1.0, Activated Partial Thromboplast Time 55H, Troponin I 0.000 11/01/17 12:25: Activated Partial Thromboplast Time 68H Height (Feet): 5 Height (Inches): 10.00 Weight (Pounds): 170 General Appearance: no apparent distress EENT: normal ENT inspection Respiratory/Chest: decreased breath sounds Abdomen: soft Brian Francis Nov 01, 2017 23:06
[2017-11-02 00:25] VITALS: BP 140/76
[2017-11-02 04:06] LABS: INR 1.2 (0.9-1.1)
[2017-11-02 04:15] VITALS: BP 125/81
[2017-11-02 08:00] VITALS: BP 138/77
--- NOTE | 2017-11-02 09:35 | Diagnostic Imaging Report ---
APPROVED REPORT CPT Code: 69006 Present Symptoms Lower Extremity Pain: Left Comments: Hx of Pulmonary Embolism RIGHT LEG: Venous imaging reveals a patent deep venous system. There is no evidence of thrombus within the femoral, popliteal or tibial segments. The greater saphenous vein is also within normal limits. Doppler indicates normal spontaneous flow within these segments. LEFT LEG: Venous imaging reveals acute thrombus in the popliteal and one of the paired peroneal veins. Imaging also reveals patency of the common femoral, and calf veins (posterior tibial and anterior tibial veins). Greater saphenous vein also within normal limits. HARRISON Cross was notified of abnormal results at 1100 hours.
--- NOTE | 2017-11-02 09:35 | Diagnostic Imaging Report ---
APPROVED REPORT CPT Code: 39992 Symptoms Comments: Hx of Pulmonary Embolism Left leg pain and swelling BILATERAL: Common femoral artery waveform analysis is within normal limits at rest. Color flow duplex sonography reveals minimal calcification throughout the superficial femoral, and popliteal arteries. There is no evidence of stenosis or occlusion within these segments. The tibioperoneal trunks are patent. The posterior tibial, anterior tibial and dorsalis pedis arteries are also patent. Doppler tibial artery waveform analysis is within normal limits bilaterally.
[2017-11-02] MEDS: Heparin 25,000u/D5W 500ml 500 ML IV SCH (11:12)
[2017-11-02 12:00] VITALS: BP 130/56
--- NOTE | 2017-11-02 13:34 | Pulmonology Progress Note ---
Assessment/Plan Assessment/Plan ASSESSMENT Bilateral pulmonary emboli acute thrombus LLE Possible developing pulmonary infarct-unlikely chest pain 2 to bilateral PE PLAN OF CARE Tele CTA chest with bilateral PE and possible developing pulm infarct heparin gtt and Coumadin to bridge to therapeutic INR , still subtherapeutic heme follows O2 prn HHN prn Venous Duplex + acute DVT LLE serial troponin negative lipid panel with elevated LDL-106, counseled on low fat low cholesterol diet pain management, Flexeril added to existing regimen ( not helping) started [place] prn ( patient reluctant to take Morphine) ECHO with pEF 55-60%, no LVH tox screen negative anticardiolipin IgM Ab pending and other coagulopathy profile pending case discussed and evaluated by supervising physician Subjective Allergies: Coded Allergies: No Known Allergies (Unverified , 10/30/17) Subjective with chest pain, intermittent, and SOB on heparin gtt Objective Last 24 Hour Vital Signs Date Time Temp Pulse Resp B/P (MAP) Pulse Ox O2 Delivery O2 Flow Rate FiO2 11/02/17 12:00 97.7 72 19 130/56 97 Room Air 11/02/17 08:00 72 11/02/17 08:00 96.6 66 19 138/77 100 Room Air 11/02/17 06:45 77 20 Room Air 21 11/02/17 04:15 97.7 61 19 125/81 96 Room Air 11/02/17 04:00 58 11/02/17 00:25 96.4 72 18 140/76 Room Air 11/02/17 00:00 79 11/01/17 20:25 97.2 19 19 117/65 95 Room Air 11/01/17 20:00 86 11/01/17 19:26 76 20 Room Air 21 11/01/17 16:00 69 11/01/17 16:00 98.2 76 20 125/71 97 Room Air Intake and Output 11/01/17 11/02/17 19:00 07:00 Intake Total 785.361 ml 339.290 ml Output Total 1100 ml 950 ml Balance -314.639 ml -610.710 ml Intake Oral 480 ml IV Total 305.361 ml 339.290 ml Output Urine Total 1100 ml 950 ml # Voids 1 # Bowel Movements 1 Objective General Appearance: WD/WN, no acute distress HEENT: normocephalic, atraumatic, anicteric, mucous membranes moist Respiratory/Chest: lungs clear, no respiratory distress, no accessory muscle use Cardiovascular: normal peripheral pulses, normal rate - SR on tele, no JVD Abdomen: normal bowel sounds, soft, non tender, non distended Extremities: no edema, pedal pulses normal Neurologic/Psychiatric: no motor/sensory deficits, alert, oriented x 3, responsive, normal mood/affect Musculoskeletal: normal muscle bulk Laboratory Tests 11/02/17 03:35: Prothrombin Time 13.1H, Prothromb Time International Ratio 1.2H, Activated Partial Thromboplast Time 73H Current Medications Medications (Trade) Dose Ordered Sig/Rinku Route PRN Reason Start Time Stop Time Status Last Admin Dose Admin Acetaminophen (Tylenol) 650 mg Q4H PRN ORAL fever 10/30/17 06:45 11/29/17 06:44 Acetaminophen/ Hydrocodone Bitart ([place] 5/325) 1 tab Q4H PRN ORAL Moderate Pain (Pain Scale 4-6) 11/01/17 12:15 11/08/17 12:14 11/01/17 20:03 Al Hydroxide/Mg Hydroxide (Mylanta II) 30 ml Q6H PRN ORAL dyspepsia 10/30/17 06:45 11/29/17 06:44 Dextrose (Dextrose 50%) STAT PRN IV Hypoglycemia 10/30/17 06:45 11/29/17 06:44 Heparin Sodium/ Dextrose 500 ml @ 33.929 mls/ hr adjust per protocol IV 11/01/17 05:45 11/29/17 16:59 11/02/17 11:12 Lorazepam (Ativan 2mg/ml 1ml) 0.5 mg Q4H PRN IV For Anxiety 10/30/17 06:45 11/06/17 06:44 Morphine Sulfate (Morphine Sulfate) 1 mg Q4H PRN IVP Severe Pain (Pain Scale 7-10) 11/01/17 12:30 11/06/17 06:44 Ondansetron HCl (Zofran) 4 mg Q6H PRN IVP Nausea & Vomiting 10/30/17 06:45 11/29/17 06:44 Polyethylene Glycol (Miralax) 17 gm HSPRN PRN ORAL Constipation 10/30/17 06:45 11/29/17 06:44 Warfarin Sodium (Coumadin per pharmacy) 1 ea DAILY PRN MISC Per rx protocol 10/30/17 20:45 11/29/17 20:44 Warfarin Sodium (Coumadin) 10 mg COUMADIN ONCE ORAL 11/02/17 17:00 11/02/17 17:01 Zolpidem Tartrate (Ambien) 5 mg HSPRN PRN ORAL Insomnia 10/30/17 06:45 11/06/17 06:44 Kevon ([place])Ana Lilia NP Nov 02, 2017 13:34
[2017-11-02 16:00] VITALS: BP 135/67
[2017-11-02] MEDS: Norco 5mg/325mg tab ORAL PRN (16:14)
[2017-11-02] MEDS ORDERED: Warfarin Sodium 10mg ORAL ONE (17:00)
[2017-11-02 20:00] VITALS: BP 138/80
--- NOTE | 2017-11-02 22:27 | General Progress Note ---
Assessment/Plan Problem List: (1) Pulmonary infarct ICD Codes: I26.99 - Other pulmonary embolism without acute cor pulmonale SNOMED: 62171428 (2) Pulmonary emboli ICD Codes: I26.99 - Other pulmonary embolism without acute cor pulmonale SNOMED: 91018345 Qualifiers: Qualified Codes: I26.99 - Other pulmonary embolism without acute cor pulmonale Status: progressing Assessment/Plan afebrile no sob pulmonary embolim chest wall pain treatment per pulmonary and heme/onc Subjective ROS Limited/Unobtainable: Yes Allergies: Coded Allergies: No Known Allergies (Unverified , 10/30/17) Objective Last 24 Hour Vital Signs Date Time Temp Pulse Resp B/P (MAP) Pulse Ox O2 Delivery O2 Flow Rate FiO2 11/02/17 16:00 96.7 86 18 135/67 99 Room Air 11/02/17 16:00 84 11/02/17 12:00 81 11/02/17 12:00 97.7 72 19 130/56 97 Room Air 11/02/17 08:00 72 11/02/17 08:00 96.6 66 19 138/77 100 Room Air 11/02/17 06:45 77 20 Room Air 21 11/02/17 04:15 97.7 61 19 125/81 96 Room Air 11/02/17 04:00 58 11/02/17 00:25 96.4 72 18 140/76 Room Air 11/02/17 00:00 79 Intake and Output 11/01/17 11/02/17 19:00 07:00 Intake Total 785.361 ml 339.290 ml Output Total 1100 ml 950 ml Balance -314.639 ml -610.710 ml Intake Oral 480 ml IV Total 305.361 ml 339.290 ml Output Urine Total 1100 ml 950 ml # Voids 1 # Bowel Movements 1 Laboratory Tests 11/02/17 03:35: Prothrombin Time 13.1H, Prothromb Time International Ratio 1.2H, Activated Partial Thromboplast Time 73H Height (Feet): 5 Height (Inches): 10.00 Weight (Pounds): 186 Yolanda Littlejohn MD Nov 02, 2017 22:26
--- NOTE | 2017-11-02 23:53 | General Progress Note ---
Assessment/Plan Status: stable Assessment/Plan #. Anemia, secondary to chronic disease, mild. --> Hemoglobin has been stable, does not need blood transfusion at the moment. --> Trend cbc daily. --> Hemoglobin goal >7 #. Pulmonary emboli, currently is on heparin drip. --> Consider to begin the patient on Coumadin with INR goal between 2 and 3. --> Outpatient management. #. Coagulopathy, secondary to use of Coumadin. --> Monitor INR Subjective Date patient seen: Nov 02, 2017 Constitutional: Denies: no symptoms, chills, diaphoresis, fever, malaise, weakness, other HEENT: Denies: no symptoms, eye pain, blurred vision, tearing, double vision, ear pain, ear discharge, nose pain, nose congestion, throat pain, throat swelling, mouth pain, mouth swelling, other Cardiovascular: Denies: no symptoms, chest pain, edema, irregular heart rate, lightheadedness, palpitations, syncope, other Respiratory: Denies: no symptoms, cough, orthopnea, shortness of breath, SOB with excertion, SOB at rest, sputum, stridor, wheezing, other Gastrointestinal/Abdominal: Denies: no symptoms, abdomen distended, abdominal pain, black stools, tarry stools, blood in stool, constipated, diarrhea, difficulty swallowing, nausea, poor appetite, poor fluid intake, rectal bleeding , vomiting, other Genitourinary: Denies: no symptoms, burning, discharge, frequency, flank pain, hematuria, incontinence, pain, urgency, other Hematologic/Lymphatic: Reports: anemia Allergies: Coded Allergies: No Known Allergies (Unverified , 10/30/17) Subjective Had some chest pain and sob. On heparin GTT. Objective Last 24 Hour Vital Signs Date Time Temp Pulse Resp B/P (MAP) Pulse Ox O2 Delivery O2 Flow Rate FiO2 11/02/17 20:00 97.7 84 18 138/80 100 Room Air 11/02/17 20:00 96 11/02/17 16:00 96.7 86 18 135/67 99 Room Air 11/02/17 16:00 84 11/02/17 12:00 81 11/02/17 12:00 97.7 72 19 130/56 97 Room Air 11/02/17 08:00 72 11/02/17 08:00 96.6 66 19 138/77 100 Room Air 11/02/17 06:45 77 20 Room Air 21 11/02/17 04:15 97.7 61 19 125/81 96 Room Air 11/02/17 04:00 58 11/02/17 00:25 96.4 72 18 140/76 Room Air 11/02/17 00:00 79 Intake and Output 11/01/17 11/02/17 19:00 07:00 Intake Total 785.361 ml 339.290 ml Output Total 1100 ml 950 ml Balance -314.639 ml -610.710 ml Intake Oral 480 ml IV Total 305.361 ml 339.290 ml Output Urine Total 1100 ml 950 ml # Voids 1 # Bowel Movements 1 Laboratory Tests 11/02/17 03:35: Prothrombin Time 13.1H, Prothromb Time International Ratio 1.2H, Activated Partial Thromboplast Time 73H Height (Feet): 5 Height (Inches): 10.00 Weight (Pounds): 186 Respiratory/Chest: decreased breath sounds Abdomen: soft Brian Francis Nov 02, 2017 23:53
[2017-11-03] VITALS: BP 125/64
[2017-11-03] MEDS: Heparin 25,000u/D5W 500ml 500 ML IV SCH (01:35)
[2017-11-03 04:00] VITALS: BP 132/79
[2017-11-03 05:22] LABS: BASOPHILS % (AUTO) 1.4 % (0.0-2.0); EOSINOPHILS % (AUTO) 2.2 % (0.0-3.0); HEMATOCRIT 46.6 % (42.0-52.0); HEMOGLOBIN 14.9 G/DL (14.2-18.0); LYMPHOCYTES % (AUTO) 25.4 % (20.0-45.0); MEAN CORPUSCULAR VOLUME 88 FL (80-99); MONOCYTES % (AUTO) 15.3 % (1.0-10.0); NEUTROPHILS % (AUTO) 55.7 % (45.0-75.0); PLATELET COUNT 352 K/UL (150-450); RED BLOOD COUNT 5.31 M/UL (4.70-6.10); RED CELL DISTRIBUTION WIDTH 11.6 % (11.6-14.8)
[2017-11-03 05:34] LABS: ANION GAP 9 mmol/L (5-15); BLOOD UREA NITROGEN 12 mg/dL (7-18); CALCIUM 9.2 MG/DL (8.5-10.1); CARBON DIOXIDE 25 MMOL/L (21-32); CHLORIDE 101 MMOL/L (98-107); CREATININE 0.9 MG/DL (0.55-1.30); POTASSIUM 4.4 MMOL/L (3.5-5.1); SODIUM 135 MMOL/L (136-145)
[2017-11-03 06:16] LABS: INR 1.9 (0.9-1.1)
[2017-11-03] MEDS ORDERED: Heparin 25,000u/D5W 500ml 500 ML IV SCH (06:30)
[2017-11-03 08:00] VITALS: BP 134/85
[2017-11-03 12:00] VITALS: BP 130/85
--- NOTE | 2017-11-03 12:49 | Pulmonology Progress Note ---
Assessment/Plan Problems: (1) Pulmonary emboli Assessment/Plan on coumadin add flexeril pain control INR is 1.9 now consider dc heparin and d/c planing Subjective ROS Limited/Unobtainable: No Constitutional: Reports: no symptoms HEENT: Repors: no symptoms Allergies: Coded Allergies: No Known Allergies (Unverified , 10/30/17) Objective Last 24 Hour Vital Signs Date Time Temp Pulse Resp B/P (MAP) Pulse Ox O2 Delivery O2 Flow Rate FiO2 11/03/17 08:00 96.8 80 19 134/85 98 Room Air 11/03/17 07:50 79 18 Room Air 21 11/03/17 04:00 99.0 73 20 132/79 95 Room Air 11/03/17 04:00 77 11/03/17 00:00 65 11/03/17 00:00 98.7 65 20 125/64 97 Room Air 11/02/17 20:00 97.7 84 18 138/80 100 Room Air 11/02/17 20:00 96 11/02/17 19:06 82 19 Room Air 21 11/02/17 16:00 96.7 86 18 135/67 99 Room Air 11/02/17 16:00 84 Intake and Output 11/02/17 11/03/17 19:00 07:00 Intake Total 879.148 ml 643.148 ml Output Total 200 ml 700 ml Balance 679.148 ml -56.852 ml Intake Oral 472 ml 236 ml IV Total 407.148 ml 407.148 ml Output Urine Total 200 ml 700 ml Objective General Appearance: wn/wd/wh Lines, tubes and drains: peripheral HEENT: normocephalic, anicteric Neck: non-tender, normal alignment Respiratory/Chest: chest wall non-tender, lungs clear Breasts: no masses Cardiovascular/Chest: normal peripheral pulses Abdomen: normal bowel sounds Genitourinary/Rectal: normal genital exam Extremities: normal range of motion Laboratory Tests 11/03/17 04:50: White Blood Count 8.0, Red Blood Count 5.31, Hemoglobin 14.9, Hematocrit 46.6, Mean Corpuscular Volume 88, Mean Corpuscular Hemoglobin 28.0, Mean Corpuscular Hemoglobin Concent 31.9L, Red Cell Distribution Width 11.6, Platelet Count 352, Mean Platelet Volume 6.5, Neutrophils (%) (Auto) 55.7, Lymphocytes (%) (Auto) 25.4, Monocytes (%) (Auto) 15.3H, Eosinophils (%) (Auto) 2.2, Basophils (%) ( Auto) 1.4, Prothrombin Time 20.5H, Prothromb Time International Ratio 1.9H, Activated Partial Thromboplast Time 86H, Sodium Level 135L, Potassium Level 4.4 , Chloride Level 101, Carbon Dioxide Level 25, Anion Gap 9, Blood Urea Nitrogen 12, Creatinine 0.9, Estimat Glomerular Filtration Rate > 60, Glucose Level 111H , Calcium Level 9.2 Current Medications Medications (Trade) Dose Ordered Sig/Rinku Route PRN Reason Start Time Stop Time Status Last Admin Dose Admin Acetaminophen (Tylenol) 650 mg Q4H PRN ORAL fever 10/30/17 06:45 11/29/17 06:44 Acetaminophen/ Hydrocodone Bitart ([place] 5/325) 1 tab Q4H PRN ORAL Moderate Pain (Pain Scale 4-6) 11/01/17 12:15 11/08/17 12:14 11/02/17 16:14 Al Hydroxide/Mg Hydroxide (Mylanta II) 30 ml Q6H PRN ORAL dyspepsia 10/30/17 06:45 11/29/17 06:44 Dextrose (Dextrose 50%) STAT PRN IV Hypoglycemia 10/30/17 06:45 11/29/17 06:44 Heparin Sodium/ Dextrose 500 ml @ 33.929 mls/ hr adjust per protocol IV 11/03/17 06:30 12/03/17 06:29 Lorazepam (Ativan 2mg/ml 1ml) 0.5 mg Q4H PRN IV For Anxiety 10/30/17 06:45 11/06/17 06:44 Morphine Sulfate (Morphine Sulfate) 1 mg Q4H PRN IVP Severe Pain (Pain Scale 7-10) 11/01/17 12:30 11/06/17 06:44 Ondansetron HCl (Zofran) 4 mg Q6H PRN IVP Nausea & Vomiting 10/30/17 06:45 11/29/17 06:44 Polyethylene Glycol (Miralax) 17 gm HSPRN PRN ORAL Constipation 10/30/17 06:45 11/29/17 06:44 Warfarin Sodium (Coumadin per pharmacy) 1 ea DAILY PRN MISC Per rx protocol 10/30/17 20:45 11/29/17 20:44 Warfarin Sodium (Coumadin) 5 mg COUMADIN ORAL 11/03/17 17:00 11/03/17 17:01 Zolpidem Tartrate (Ambien) 5 mg HSPRN PRN ORAL Insomnia 10/30/17 06:45 11/06/17 06:44 DANAE SHINE Nov 03, 2017 12:49
--- NOTE | 2017-11-03 13:27 | General Progress Note ---
Assessment/Plan Status: stable, unchanged Assessment/Plan #. Pulmonary emboli, currently is on heparin drip. --> Consider to begin the patient on Coumadin with INR goal between 2 and 3. --> INR currently at 1.9. --> Outpatient management. #. Coagulopathy, secondary to use of Coumadin. --> Monitor INR #. Anemia, secondary to chronic disease, mild. --> Hemoglobin has been WNL, does not need blood transfusion today --> Trend cbc daily. --> Hemoglobin goal >7 Subjective Date patient seen: Nov 03, 2017 Constitutional: Denies: no symptoms, chills, diaphoresis, fever, malaise, weakness, other HEENT: Denies: no symptoms, eye pain, blurred vision, tearing, double vision, ear pain, ear discharge, nose pain, nose congestion, throat pain, throat swelling, mouth pain, mouth swelling, other Cardiovascular: Denies: no symptoms, chest pain, edema, irregular heart rate, lightheadedness, palpitations, syncope, other Respiratory: Denies: no symptoms, cough, orthopnea, shortness of breath, SOB with excertion, SOB at rest, sputum, stridor, wheezing, other Gastrointestinal/Abdominal: Denies: no symptoms, abdomen distended, abdominal pain, black stools, tarry stools, blood in stool, constipated, diarrhea, difficulty swallowing, nausea, poor appetite, poor fluid intake, rectal bleeding , vomiting, other Genitourinary: Denies: no symptoms, burning, discharge, frequency, flank pain, hematuria, incontinence, pain, urgency, other Allergies: Coded Allergies: No Known Allergies (Unverified , 10/30/17) Subjective On pain control and heparin drip. No new events. Objective Last 24 Hour Vital Signs Date Time Temp Pulse Resp B/P (MAP) Pulse Ox O2 Delivery O2 Flow Rate FiO2 11/03/17 12:00 87 11/03/17 12:00 97.0 80 19 130/85 98 Room Air 11/03/17 08:00 96.8 80 19 134/85 98 Room Air 11/03/17 08:00 71 11/03/17 07:50 79 18 Room Air 21 11/03/17 04:00 99.0 73 20 132/79 95 Room Air 11/03/17 04:00 77 11/03/17 00:00 65 11/03/17 00:00 98.7 65 20 125/64 97 Room Air 11/02/17 20:00 97.7 84 18 138/80 100 Room Air 11/02/17 20:00 96 11/02/17 19:06 82 19 Room Air 21 11/02/17 16:00 96.7 86 18 135/67 99 Room Air 11/02/17 16:00 84 Intake and Output 11/02/17 11/03/17 19:00 07:00 Intake Total 879.148 ml 643.148 ml Output Total 200 ml 700 ml Balance 679.148 ml -56.852 ml Intake Oral 472 ml 236 ml IV Total 407.148 ml 407.148 ml Output Urine Total 200 ml 700 ml Laboratory Tests 11/03/17 04:50: White Blood Count 8.0, Red Blood Count 5.31, Hemoglobin 14.9, Hematocrit 46.6, Mean Corpuscular Volume 88, Mean Corpuscular Hemoglobin 28.0, Mean Corpuscular Hemoglobin Concent 31.9L, Red Cell Distribution Width 11.6, Platelet Count 352, Mean Platelet Volume 6.5, Neutrophils (%) (Auto) 55.7, Lymphocytes (%) (Auto) 25.4, Monocytes (%) (Auto) 15.3H, Eosinophils (%) (Auto) 2.2, Basophils (%) ( Auto) 1.4, Prothrombin Time 20.5H, Prothromb Time International Ratio 1.9H, Activated Partial Thromboplast Time 86H, Sodium Level 135L, Potassium Level 4.4 , Chloride Level 101, Carbon Dioxide Level 25, Anion Gap 9, Blood Urea Nitrogen 12, Creatinine 0.9, Estimat Glomerular Filtration Rate > 60, Glucose Level 111H , Calcium Level 9.2 Height (Feet): 5 Height (Inches): 10.00 Weight (Pounds): 183 General Appearance: no apparent distress Cardiovascular: normal rate, regular rhythm Respiratory/Chest: lungs clear Brian Francis Nov 03, 2017 13:27
--- NOTE | 2017-11-03 14:08 | General Progress Note ---
Assessment/Plan Problem List: (1) Pulmonary infarct ICD Codes: I26.99 - Other pulmonary embolism without acute cor pulmonale SNOMED: 15620296 (2) Pulmonary emboli ICD Codes: I26.99 - Other pulmonary embolism without acute cor pulmonale SNOMED: 68583489 Qualifiers: Qualified Codes: I26.99 - Other pulmonary embolism without acute cor pulmonale Status: stable, progressing, tolerating diet Assessment/Plan anticoag, dc if clear by pulm and heme Subjective Allergies: Coded Allergies: No Known Allergies (Unverified , 10/30/17) All Systems: reviewed and negative except above Subjective calm in bed Objective Last 24 Hour Vital Signs Date Time Temp Pulse Resp B/P (MAP) Pulse Ox O2 Delivery O2 Flow Rate FiO2 11/03/17 12:00 87 11/03/17 12:00 97.0 80 19 130/85 98 Room Air 11/03/17 08:00 96.8 80 19 134/85 98 Room Air 11/03/17 08:00 71 11/03/17 07:50 79 18 Room Air 21 11/03/17 04:00 99.0 73 20 132/79 95 Room Air 11/03/17 04:00 77 11/03/17 00:00 65 11/03/17 00:00 98.7 65 20 125/64 97 Room Air 11/02/17 20:00 97.7 84 18 138/80 100 Room Air 11/02/17 20:00 96 11/02/17 19:06 82 19 Room Air 21 11/02/17 16:00 96.7 86 18 135/67 99 Room Air 11/02/17 16:00 84 Intake and Output 11/02/17 11/03/17 19:00 07:00 Intake Total 879.148 ml 643.148 ml Output Total 200 ml 700 ml Balance 679.148 ml -56.852 ml Intake Oral 472 ml 236 ml IV Total 407.148 ml 407.148 ml Output Urine Total 200 ml 700 ml Laboratory Tests 11/03/17 04:50: White Blood Count 8.0, Red Blood Count 5.31, Hemoglobin 14.9, Hematocrit 46.6, Mean Corpuscular Volume 88, Mean Corpuscular Hemoglobin 28.0, Mean Corpuscular Hemoglobin Concent 31.9L, Red Cell Distribution Width 11.6, Platelet Count 352, Mean Platelet Volume 6.5, Neutrophils (%) (Auto) 55.7, Lymphocytes (%) (Auto) 25.4, Monocytes (%) (Auto) 15.3H, Eosinophils (%) (Auto) 2.2, Basophils (%) ( Auto) 1.4, Prothrombin Time 20.5H, Prothromb Time International Ratio 1.9H, Activated Partial Thromboplast Time 86H, Sodium Level 135L, Potassium Level 4.4 , Chloride Level 101, Carbon Dioxide Level 25, Anion Gap 9, Blood Urea Nitrogen 12, Creatinine 0.9, Estimat Glomerular Filtration Rate > 60, Glucose Level 111H , Calcium Level 9.2 Height (Feet): 5 Height (Inches): 10.00 Weight (Pounds): 183 General Appearance: lethargic EENT: normal ENT inspection Neck: normal alignment Cardiovascular: normal peripheral pulses, normal rate, regular rhythm Respiratory/Chest: chest wall non-tender, lungs clear, normal breath sounds Abdomen: normal bowel sounds, non tender, soft Extremities: normal inspection Edema: no edema noted Arm (L), no edema noted Arm (R), no edema noted Leg (L), no edema noted Leg (R), no edema noted Pedal (L), no edema noted Pedal (R), no edema noted Generalized Neurologic: responsive, motor weakness Skin: normal pigmentation, warm/dry YUMIKO PARNELL Nov 03, 2017 14:08
[2017-11-03 16:00] VITALS: BP 141/95
[2017-11-03] MEDS ORDERED: Warfarin Sodium 5mg ORAL SCH (17:00)
[2017-11-03] MEDS ORDERED: NS 500ML ONE (18:42)
[2017-11-03 20:00] VITALS: BP 134/75
[2017-11-04] VITALS: BP 134/80
[2017-11-04 04:00] VITALS: BP 119/74
[2017-11-04 07:55] LABS: INR 2.4 (0.9-1.1)
[2017-11-04 08:00] VITALS: BP 143/79
--- NOTE | 2017-11-04 09:57 | Pulmonology Progress Note ---
Assessment/Plan Problems: (1) Pulmonary emboli Assessment/Plan on coumadin add flexeril pain control INR is 2.4 consider dc heparin and d/c planing ct of abdomen because of abdominal pain Subjective ROS Limited/Unobtainable: No Allergies: Coded Allergies: No Known Allergies (Unverified , 10/30/17) Objective Last 24 Hour Vital Signs Date Time Temp Pulse Resp B/P (MAP) Pulse Ox O2 Delivery O2 Flow Rate FiO2 11/04/17 04:00 71 11/04/17 04:00 97.9 74 20 119/74 96 Room Air 11/04/17 00:00 85 11/04/17 00:00 98.1 96 18 134/80 97 Room Air 11/03/17 20:00 94 11/03/17 20:00 97.9 80 20 134/75 96 Room Air 11/03/17 19:30 86 18 Room Air 21 11/03/17 16:00 95 11/03/17 16:00 97.7 88 18 141/95 98 Room Air 11/03/17 12:00 87 11/03/17 12:00 97.0 80 19 130/85 98 Room Air Intake and Output 11/03/17 11/04/17 19:00 07:00 Intake Total 777.361 ml 200 ml Output Total 200 ml Balance 577.361 ml 200 ml Intake Oral 472 ml 200 ml IV Total 305.361 ml Output Urine Total 200 ml # Voids 1 Objective General Appearance: wn/wd/wh Lines, tubes and drains: peripheral HEENT: normocephalic, anicteric Neck: non-tender, normal alignment Respiratory/Chest: chest wall non-tender, lungs clear Breasts: no masses Cardiovascular/Chest: normal peripheral pulses Abdomen: normal bowel sounds Genitourinary/Rectal: normal genital exam Extremities: normal range of motion Laboratory Tests 11/04/17 07:20: Prothrombin Time 25.6H, Prothromb Time International Ratio 2.4H Current Medications Medications (Trade) Dose Ordered Sig/Rinku Route PRN Reason Start Time Stop Time Status Last Admin Dose Admin Acetaminophen (Tylenol) 650 mg Q4H PRN ORAL fever 10/30/17 06:45 11/29/17 06:44 Acetaminophen/ Hydrocodone Bitart ([place] 5/325) 1 tab Q4H PRN ORAL Moderate Pain (Pain Scale 4-6) 11/01/17 12:15 11/08/17 12:14 11/02/17 16:14 Al Hydroxide/Mg Hydroxide (Mylanta II) 30 ml Q6H PRN ORAL dyspepsia 10/30/17 06:45 11/29/17 06:44 Dextrose (Dextrose 50%) STAT PRN IV Hypoglycemia 10/30/17 06:45 11/29/17 06:44 Lorazepam (Ativan 2mg/ml 1ml) 0.5 mg Q4H PRN IV For Anxiety 10/30/17 06:45 11/06/17 06:44 Morphine Sulfate (Morphine Sulfate) 1 mg Q4H PRN IVP Severe Pain (Pain Scale 7-10) 11/01/17 12:30 11/06/17 06:44 Ondansetron HCl (Zofran) 4 mg Q6H PRN IVP Nausea & Vomiting 10/30/17 06:45 11/29/17 06:44 Polyethylene Glycol (Miralax) 17 gm HSPRN PRN ORAL Constipation 10/30/17 06:45 11/29/17 06:44 Warfarin Sodium (Coumadin per pharmacy) 1 ea DAILY PRN MISC Per rx protocol 10/30/17 20:45 11/29/17 20:44 Warfarin Sodium (Coumadin) 6 mg COUMADIN ONCE ORAL 11/04/17 17:00 11/04/17 17:01 Zolpidem Tartrate (Ambien) 5 mg HSPRN PRN ORAL Insomnia 10/30/17 06:45 11/06/17 06:44 DANAE SHINE Nov 04, 2017 09:57
[2017-11-04 12:00] VITALS: BP 143/63
--- NOTE | 2017-11-04 12:57 | Diagnostic Imaging Report ---
Clinical Indication: Abdominal pain Technique: No oral contrast utilized, per emergency room physician request IV administration nonionic contrast. Venous phase spiral acquisition obtained through the abdomen and pelvis. Multiplanar reconstructions were generated. Total dose length product 764.46 mGycm. CTDIvol(s) 12.64 mGy. Dose reduction achieved using automated exposure control Comparison: none Findings: The appendix is poorly visualized but probably normal. No evidence of diverticulosis or diverticulitis. No small bowel distention. Contrast is seen throughout the entirety of the small bowel to the level of the ileocecal valve. No small bowel wall thickening. No free or loculated intraperitoneal air or fluid is evident. The liver demonstrates a subcentimeter low-attenuation lesion in segment 6 which is too small to characterize. The gallbladder, bile ducts, pancreas, spleen, adrenals are unremarkable. The right kidney demonstrates a multiple subcentimeter low-attenuation lesions which are too small to characterize. The left kidney demonstrates an interpolar region cyst. A 2.2 x 1.6 x 2.2 cm enhancing mass is seen in the posterior wall of the bladder. This is equivocally but not definitively contiguous with the prostate. No pelvic adenopathy demonstrated. There is a large left scrotal hydrocele. The left testicle appears slightly enlarged There is a small left pleural effusion. There is some atelectasis at the left lung base. The distal esophagus and stomach are unremarkable. The highest cuts demonstrate the right lower lobe pulmonary embolus described on recent chest CT Impression: 2 x 2 by 1.6 x 2.2 cm enhancing mass in the posterior wall of the bladder. This could represent just indentation of an enlarged prostate into the bladder wall, but appearance is worrisome for a bladder tumor. Further evaluation with cystoscopy recommended Large left scrotal hydrocele. Equivocal mild left testicular enlargement. Consider further evaluation with ultrasound Small left pleural effusion. Note that this was not evident on chest CT angiogram of 10/30/2017 Right lower lobe pulmonary emboli barely visible, also described on prior chest CT Subcentimeter right renal and liver lesions, too small to characterize. Most likely benign simple cysts. No further follow-up necessary Findings discussed by phone with Dr. Florence at the time of interpretation. Dr. Francis also notified The CT scanner at [facility] is accredited by the [employer] and the scans are performed using protocols designed to limit radiation exposure to as low as reasonably achievable to attain images of sufficient resolution adequate for diagnostic evaluation.
--- NOTE | 2017-11-04 14:00 | General Progress Note ---
Assessment/Plan Problem List: (1) Pulmonary infarct ICD Codes: I26.99 - Other pulmonary embolism without acute cor pulmonale SNOMED: 61232761 (2) Pulmonary emboli ICD Codes: I26.99 - Other pulmonary embolism without acute cor pulmonale SNOMED: 67817395 Qualifiers: Qualified Codes: I26.99 - Other pulmonary embolism without acute cor pulmonale (3) Bladder mass ICD Codes: N32.89 - Other specified disorders of bladder SNOMED: 543363041 Status: stable, progressing, tolerating diet Assessment/Plan anticoag, ruo eval cbc bmo am dc if clear by pulm and heme Subjective Constitutional: Reports: weakness Allergies: Coded Allergies: No Known Allergies (Unverified , 10/30/17) All Systems: reviewed and negative except above Subjective calm in bed Objective Last 24 Hour Vital Signs Date Time Temp Pulse Resp B/P (MAP) Pulse Ox O2 Delivery O2 Flow Rate FiO2 11/04/17 08:00 97.6 87 20 143/79 96 Room Air 11/04/17 06:30 80 17 Room Air 11/04/17 04:00 71 11/04/17 04:00 97.9 74 20 119/74 96 Room Air 11/04/17 00:00 85 11/04/17 00:00 98.1 96 18 134/80 97 Room Air 11/03/17 20:00 94 11/03/17 20:00 97.9 80 20 134/75 96 Room Air 11/03/17 19:30 86 18 Room Air 21 11/03/17 16:00 95 11/03/17 16:00 97.7 88 18 141/95 98 Room Air Intake and Output 11/03/17 11/04/17 19:00 07:00 Intake Total 777.361 ml 200 ml Output Total 200 ml Balance 577.361 ml 200 ml Intake Oral 472 ml 200 ml IV Total 305.361 ml Output Urine Total 200 ml # Voids 1 Laboratory Tests 11/04/17 07:20: Prothrombin Time 25.6H, Prothromb Time International Ratio 2.4H, Free Prostate Specific Antigen [Pending], Percent Free Prostate Specific Ag [Pending], Prostate Specific Antigen Total [Pending] Height (Feet): 5 Height (Inches): 10.00 Weight (Pounds): 180 General Appearance: alert EENT: normal ENT inspection Neck: normal alignment Cardiovascular: normal peripheral pulses, normal rate, regular rhythm Respiratory/Chest: chest wall non-tender, lungs clear, normal breath sounds Abdomen: normal bowel sounds, non tender, soft Extremities: normal inspection Edema: no edema noted Arm (L), no edema noted Arm (R), no edema noted Leg (L), no edema noted Leg (R), no edema noted Pedal (L), no edema noted Pedal (R), no edema noted Generalized Neurologic: responsive, motor weakness Skin: normal pigmentation, warm/dry YUMIKO PARNELL Nov 04, 2017 14:00
--- NOTE | 2017-11-04 14:55 | GI Initial Consult Note ---
History of Present Illness General Date patient seen: Nov 04, 2017 Time patient seen: 14:43 Reason for Hospitalization: Chest Pain Referring physician: Dr. Florence Reason for Consultation: ABDOMINAL PAIN Present Illness HPI Is a 62-year-old male with no past medical history. He presents with chief complaint of chest pain. Onset was about one half hours ago. He was walking from a restaurant when he started developing sharp pain in his left chest area. Rated to his neck. Was also short of breath. Pain is sharp 10 out of 10. No nausea no vomiting. No fever or chills. He was at [facility] last week for swelling in discoloration to his left leg. Workup is negative for DVT. Labs are unremarkable. He was treated with medication and given crutches. For his chest pain, onset was acute. EMS gave him aspirin and nitroglycerin without much relief. GI consulted for abdominal pain. HPI noted above. Pt seen on floor, awake A& Ox4 c/o of left flank pain described as sharp and stabbing in addition to LUQ pain. Denies any radiation, states as two different sources of pain that exacerbate with movement. Denies any N/V/D. Tolerating diet. No abdominal weight loss. Abdomen non-tender, soft non distended. Utox negative. Labs reviewed. Recent AP CT reviewed noted with concerning mass on the bladder. Last colonoscopy was approximately 3 years ago with unremarkable results. Home Meds Reported Medications Cephalexin* (KEFLEX*) 500 Mg Capsule, 500 MG ORAL EVERY 12 HOURS, #14 CAP 0 Refills 10/30/17 Med list reviewed/reconciled: Yes Allergies: Coded Allergies: No Known Allergies (Unverified , 10/30/17) Patient History History Provided By: Patient, Medical Record PMH Narrative Past Medical History: see triage record, old chart reviewed Past Surgical History: none Pertinent Family History: none Social History: Denies: smoking Immunizations: other Reviewed Nursing Documentation: PMH: Agreed, PSxH: Agreed Nursing Documentation-PM Past Medical History: No Stated History Social History: Denies: smoking, alcohol use, drug use, other Review of Systems All Other Systems: negative except mentioned in HPI Physical Exam Vital Signs Date Time Temp Pulse Resp B/P (MAP) Pulse Ox O2 Delivery O2 Flow Rate FiO2 10/31/17 08:00 84 10/31/17 08:00 97.5 19 142/81 97 Room Air 1/20/18 07:57 21 Sp02 EP Interpretation: reviewed, normal Labs Laboratory Tests Test 11/04/17 07:20 Prothrombin Time 25.6 SEC (9.30-11.50) H Prothromb Time International Ratio 2.4 (0.9-1.1) H Free Prostate Specific Antigen Pending Percent Free Prostate Specific Ag Pending Prostate Specific Antigen Total Pending General Appearance: well appearing, no apparent distress, alert Head: normocephalic EENT: PERRL/EOMI, normal ENT inspection Neck: supple Respiratory: normal breath sounds, no respiratory distress Cardiovascular: normal rate Gastrointestinal: normal inspection, non tender, soft, normal bowel sounds, non -distended Rectal: deferred Genitourinary: deferred Musculoskeletal: normal inspection, back normal Neurologic: normal inspection, alert, oriented x3, responsive Psychiatric: normal inspection, judgement/insight normal, memory normal Skin: normal inspection, normal color, no rash, warm/dry, palpation normal, well hydrated Lymphatic: normal inspection, no adenopathy Current Medications Current Medications Medications (Trade) Dose Ordered Sig/Rinku Route PRN Reason Start Time Stop Time Status Last Admin Dose Admin Acetaminophen (Tylenol) 650 mg Q4H PRN ORAL fever 10/30/17 06:45 11/29/17 06:44 Acetaminophen/ Hydrocodone Bitart ([place] 5/325) 1 tab Q4H PRN ORAL Moderate Pain (Pain Scale 4-6) 11/01/17 12:15 11/08/17 12:14 11/02/17 16:14 Al Hydroxide/Mg Hydroxide (Mylanta II) 30 ml Q6H PRN ORAL dyspepsia 10/30/17 06:45 11/29/17 06:44 Dextrose (Dextrose 50%) STAT PRN IV Hypoglycemia 10/30/17 06:45 11/29/17 06:44 Lorazepam (Ativan 2mg/ml 1ml) 0.5 mg Q4H PRN IV For Anxiety 10/30/17 06:45 11/06/17 06:44 Morphine Sulfate (Morphine Sulfate) 1 mg Q4H PRN IVP Severe Pain (Pain Scale 7-10) 11/01/17 12:30 11/06/17 06:44 Ondansetron HCl (Zofran) 4 mg Q6H PRN IVP Nausea & Vomiting 10/30/17 06:45 11/29/17 06:44 Polyethylene Glycol (Miralax) 17 gm HSPRN PRN ORAL Constipation 10/30/17 06:45 11/29/17 06:44 Warfarin Sodium (Coumadin per pharmacy) 1 ea DAILY PRN MISC Per rx protocol 10/30/17 20:45 11/29/17 20:44 Warfarin Sodium (Coumadin) 6 mg COUMADIN ONCE ORAL 11/04/17 17:00 11/04/17 17:01 Zolpidem Tartrate (Ambien) 5 mg HSPRN PRN ORAL Insomnia 10/30/17 06:45 11/06/17 06:44 GI: Plan Problems: (1) Abdominal pain (2) Bladder mass (3) Pulmonary emboli Plan CT AP reviewed, see full report >> 2 x 2 by 1.6 x 2.2 cm enhancing mass in the posterior wall of the bladder. - Small left pleural effusion. Note that this was not evident on chest CT angiogram of 10/30/2017. no apparent GI issues at this time >> fu urology recs, oncology recs symptomatic treatment at this time regular diet, tolerating pain mgmt fu labs Discussed with Dr. Nunes. Thank you for this patient referral, we will follow. Ange Figueroa N.P. Nov 04, 2017 14:55
[2017-11-04 16:00] VITALS: BP 119/58
--- NOTE | 2017-11-04 16:28 | Podiatric Progress Note ---
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 Cont to walk as tolerated. If after a few months patient continues to have issues then I would recommend PT. It is too early to determine if patient has any group home sequelae. Subjective Allergies: Coded Allergies: No Known Allergies (Unverified , 10/30/17) Subjective Patient presents with numbness and discoloration to his left hallux starting during Cesar time. He states that he used a new pair of shoes and developed his symptoms. He subsequently developed pain and swelling in his left leg and went to [facility], but was discharged. He waited a few days and his symptoms worsened and presented to the ER here via ambulance. He states that his symptoms and appearance of his foot have improved but he continues to have some odd feeling and restricted motion in his foot Objective Exam Last 24 Hour Vital Signs Date Time Temp Pulse Resp B/P (MAP) Pulse Ox O2 Delivery O2 Flow Rate FiO2 11/04/17 16:00 97.5 75 19 119/58 97 Room Air 11/04/17 12:00 97.7 84 19 143/63 96 Room Air 11/04/17 12:00 93 11/04/17 08:00 97.6 87 20 143/79 96 Room Air 11/04/17 08:00 99 11/04/17 06:30 80 17 Room Air 11/04/17 04:00 71 11/04/17 04:00 97.9 74 20 119/74 96 Room Air 11/04/17 00:00 85 11/04/17 00:00 98.1 96 18 134/80 97 Room Air 11/03/17 20:00 94 11/03/17 20:00 97.9 80 20 134/75 96 Room Air 11/03/17 19:30 86 18 Room Air 21 Laboratory Tests Test 11/04/17 07:20 Prothrombin Time 25.6 SEC (9.30-11.50) H Prothromb Time International Ratio 2.4 (0.9-1.1) H Free Prostate Specific Antigen Pending Percent Free Prostate Specific Ag Pending Prostate Specific Antigen Total Pending General Appearance: WD/WN, no apparent distress Musculoskeletal Muscle strength grading: grade 4 - muscle strength of Vascular Pulses: 2 dorsalis pedis (R), 2 dorsalis pedis (L), 2 posterior tibial (R), 2 posterior tibial (L) Edema: no edema noted foot (L), no edema noted foot (R), no edema noted ankle ( L), no edema noted ankle (R), 1+ (<2mm) leg (L), no edema noted leg (R) Pedal hair present: Yes Visible vascular abnormality: varicose veins Temperature: within normal limits Dermatological Dermatological Narrative Skin is intact. CFT is WNL bilateral. No cyanosis noted as seen on his photos on his cell phone. Ramon Maldonado DPM Nov 04, 2017 16:28
[2017-11-04] MEDS ORDERED: Warfarin Sodium 3mg ORAL ONE (17:00)
[2017-11-04] MEDS: Norco 5mg/325mg tab ORAL PRN (18:07)
--- NOTE | 2017-11-04 20:22 | General Progress Note ---
Assessment/Plan Assessment/Plan #. Pulmonary emboli, currently is on heparin drip. --> INr is between 2-3, at therapeutic levels, will need 3 mo of it, continue until completed #. Posterior wall of bladder mass potentially --> eval with uro inpatient or outpatient #. Coagulopathy, secondary to use of Coumadin. --> Monitor INR #. Anemia, secondary to chronic disease, mild. --> Hemoglobin has been WNL, does not need blood transfusion today --> Trend cbc daily. --> Hemoglobin goal >7 Subjective Constitutional: Denies: no symptoms, chills, diaphoresis, fever, malaise, weakness, other HEENT: Denies: no symptoms, eye pain, blurred vision, tearing, double vision, ear pain, ear discharge, nose pain, nose congestion, throat pain, throat swelling, mouth pain, mouth swelling, other Cardiovascular: Denies: no symptoms, chest pain, edema, irregular heart rate, lightheadedness, palpitations, syncope, other Respiratory: Denies: no symptoms, cough, orthopnea, shortness of breath, SOB with excertion, SOB at rest, sputum, stridor, wheezing, other Gastrointestinal/Abdominal: Denies: no symptoms, abdomen distended, abdominal pain, black stools, tarry stools, blood in stool, constipated, diarrhea, difficulty swallowing, nausea, poor appetite, poor fluid intake, rectal bleeding , vomiting, other Genitourinary: Denies: no symptoms, burning, discharge, frequency, flank pain, hematuria, incontinence, pain, urgency, other Neurologic/Psychiatric: Denies: no symptoms, anxiety, depressed, emotional problems, headache, numbness, paresthesia, pre-existing deficit, seizure, tingling, tremors, weakness, other Endocrine: Denies: no symptoms, excessive sweating, flushing, intolerance to cold, intolerance to heat, increased hunger, increased thirst, increased urine, unexplained weight gain, unexplained weight loss, other Allergies: Coded Allergies: No Known Allergies (Unverified , 10/30/17) Subjective On pain control and heparin drip.On coumadin inr is above 2 Objective Last 24 Hour Vital Signs Date Time Temp Pulse Resp B/P (MAP) Pulse Ox O2 Delivery O2 Flow Rate FiO2 11/04/17 19:57 86 18 Room Air 21 11/04/17 16:00 97.5 75 19 119/58 97 Room Air 11/04/17 16:00 93 11/04/17 12:00 97.7 84 19 143/63 96 Room Air 11/04/17 12:00 93 11/04/17 08:00 97.6 87 20 143/79 96 Room Air 11/04/17 08:00 99 11/04/17 06:30 80 17 Room Air 11/04/17 04:00 71 11/04/17 04:00 97.9 74 20 119/74 96 Room Air 11/04/17 00:00 85 11/04/17 00:00 98.1 96 18 134/80 97 Room Air Intake and Output 11/03/17 11/04/17 19:00 07:00 Intake Total 777.361 ml 200 ml Output Total 200 ml Balance 577.361 ml 200 ml Intake Oral 472 ml 200 ml IV Total 305.361 ml Output Urine Total 200 ml # Voids 1 Laboratory Tests 11/04/17 07:20: Prothrombin Time 25.6H, Prothromb Time International Ratio 2.4H, Free Prostate Specific Antigen [Pending], Percent Free Prostate Specific Ag [Pending], Prostate Specific Antigen Total [Pending] Height (Feet): 5 Height (Inches): 10.00 Weight (Pounds): 180 General Appearance: alert EENT: normal ENT inspection Neck: supple Cardiovascular: normal rate Respiratory/Chest: normal breath sounds Abdomen: soft Extremities: non-tender Edema: 1+ Leg (L), 1+ Leg (R) Brian Francis Nov 04, 2017 20:22
[2017-11-04 20:35] VITALS: BP 126/71
[2017-11-05 08:00] VITALS: BP 140/82
[2017-11-05 09:32] LABS: BASOPHILS % (AUTO) 1.1 % (0.0-2.0); EOSINOPHILS % (AUTO) 1.4 % (0.0-3.0); HEMATOCRIT 47.4 % (42.0-52.0); LYMPHOCYTES % (AUTO) 15.3 % (20.0-45.0); MEAN CORPUSCULAR VOLUME 88 FL (80-99); MONOCYTES % (AUTO) 12.3 % (1.0-10.0); NEUTROPHILS % (AUTO) 69.9 % (45.0-75.0); PLATELET COUNT 400 K/UL (150-450); RED BLOOD COUNT 5.36 M/UL (4.70-6.10); RED CELL DISTRIBUTION WIDTH 11.8 % (11.6-14.8); WHITE BLOOD COUNT 7.9 K/UL (4.8-10.8)
[2017-11-05 09:48] LABS: INR 2.2 (0.9-1.1)
--- NOTE | 2017-11-05 09:59 | GI Progress Note ---
Assessment/Plan Problems: (1) Abdominal pain ICD Codes: R10.9 - Unspecified abdominal pain SNOMED: 29475035 (2) Bladder mass ICD Codes: N32.89 - Other specified disorders of bladder SNOMED: 244084042 (3) Pulmonary emboli ICD Codes: I26.99 - Other pulmonary embolism without acute cor pulmonale SNOMED: 59270608 Qualifiers: Qualified Codes: I26.99 - Other pulmonary embolism without acute cor pulmonale Status: unchanged Status Narrative Discussed with Dr. Nunes. Assessment/Plan CT AP reviewed, see full report >> 2 x 2 by 1.6 x 2.2 cm enhancing mass in the posterior wall of the bladder. - Small left pleural effusion. Note that this was not evident on chest CT angiogram of 10/30/2017. no apparent GI issues at this time >> fu urology recs, oncology recs symptomatic treatment at this time regular diet, tolerating pain mgmt fu labs Subjective Gastrointestinal/Abdominal: Reports: abdominal pain Objective Last 24 Hour Vital Signs Date Time Temp Pulse Resp B/P (MAP) Pulse Ox O2 Delivery O2 Flow Rate FiO2 11/05/17 08:00 97.3 80 19 140/82 97 Room Air 11/05/17 08:00 85 11/05/17 07:23 80 18 Room Air 21 11/05/17 04:00 76 11/05/17 00:00 88 11/04/17 20:48 72 11/04/17 20:35 98.1 77 18 126/71 93 Room Air 11/04/17 19:57 86 18 Room Air 21 11/04/17 16:00 97.5 75 19 119/58 97 Room Air 11/04/17 16:00 93 11/04/17 12:00 97.7 84 19 143/63 96 Room Air 11/04/17 12:00 93 Intake and Output 11/04/17 11/05/17 19:00 07:00 Intake Total 800 ml 120 ml Output Total 400 ml Balance 800 ml -280 ml Intake Oral 800 ml 120 ml Output Urine Total 400 ml # Voids 2 1 Laboratory Tests Test 11/05/17 08:15 White Blood Count 7.9 K/UL (4.8-10.8) Red Blood Count 5.36 M/UL (4.70-6.10) Hemoglobin 15.0 G/DL (14.2-18.0) Hematocrit 47.4 % (42.0-52.0) Mean Corpuscular Volume 88 FL (80-99) Mean Corpuscular Hemoglobin 28.1 PG (27.0-31.0) Mean Corpuscular Hemoglobin Concent 31.7 G/DL (32.0-36.0) L Red Cell Distribution Width 11.8 % (11.6-14.8) Platelet Count 400 K/UL (150-450) Mean Platelet Volume 6.7 FL (6.5-10.1) Neutrophils (%) (Auto) 69.9 % (45.0-75.0) Lymphocytes (%) (Auto) 15.3 % (20.0-45.0) L Monocytes (%) (Auto) 12.3 % (1.0-10.0) H Eosinophils (%) (Auto) 1.4 % (0.0-3.0) Basophils (%) (Auto) 1.1 % (0.0-2.0) Prothrombin Time 23.7 SEC (9.30-11.50) H Prothromb Time International Ratio 2.2 (0.9-1.1) H Sodium Level Pending Potassium Level Pending Chloride Level Pending Carbon Dioxide Level Pending Blood Urea Nitrogen Pending Creatinine Pending Estimat Glomerular Filtration Rate Pending Glucose Level Pending Calcium Level Pending Height (Feet): 5 Height (Inches): 10.00 Weight (Pounds): 180 General Appearance: WD/WN, no apparent distress, alert Cardiovascular: normal rate Respiratory/Chest: normal breath sounds, no respiratory distress Abdominal Exam: normal bowel sounds, non tender, soft Extremities: normal range of motion, non-tender Ange Figueroa N.PMaida Nov 05, 2017 09:59
[2017-11-05 10:06] LABS: ANION GAP 8 mmol/L (5-15); BLOOD UREA NITROGEN 12 mg/dL (7-18); CALCIUM 9.1 MG/DL (8.5-10.1); CARBON DIOXIDE 27 MMOL/L (21-32); CHLORIDE 99 MMOL/L (98-107); CREATININE 0.8 MG/DL (0.55-1.30); POTASSIUM 4.2 MMOL/L (3.5-5.1); SODIUM 134 MMOL/L (136-145)
--- NOTE | 2017-11-05 11:33 | Pulmonology Progress Note ---
Assessment/Plan Problems: (1) Pulmonary emboli Assessment/Plan on coumadin add flexeril pain control INR is 2.2 urology to see Subjective ROS Limited/Unobtainable: No Constitutional: Reports: no symptoms HEENT: Repors: no symptoms Respiratory: Reports: wheezing Allergies: Coded Allergies: No Known Allergies (Unverified , 10/30/17) Objective Last 24 Hour Vital Signs Date Time Temp Pulse Resp B/P (MAP) Pulse Ox O2 Delivery O2 Flow Rate FiO2 11/05/17 08:00 97.3 80 19 140/82 97 Room Air 11/05/17 08:00 85 11/05/17 07:23 80 18 Room Air 21 11/05/17 04:00 76 11/05/17 00:00 88 11/04/17 20:48 72 11/04/17 20:35 98.1 77 18 126/71 93 Room Air 11/04/17 19:57 86 18 Room Air 21 11/04/17 16:00 97.5 75 19 119/58 97 Room Air 11/04/17 16:00 93 11/04/17 12:00 97.7 84 19 143/63 96 Room Air 11/04/17 12:00 93 Intake and Output 11/04/17 11/05/17 19:00 07:00 Intake Total 800 ml 120 ml Output Total 400 ml Balance 800 ml -280 ml Intake Oral 800 ml 120 ml Output Urine Total 400 ml # Voids 2 1 Objective General Appearance: wn/wd/wh Lines, tubes and drains: peripheral HEENT: normocephalic, anicteric Neck: non-tender, normal alignment Respiratory/Chest: chest wall non-tender, lungs clear Breasts: no masses Cardiovascular/Chest: normal peripheral pulses Abdomen: normal bowel sounds Genitourinary/Rectal: normal genital exam Extremities: normal range of motion Laboratory Tests 11/05/17 08:15: White Blood Count 7.9, Red Blood Count 5.36, Hemoglobin 15.0, Hematocrit 47.4, Mean Corpuscular Volume 88, Mean Corpuscular Hemoglobin 28.1, Mean Corpuscular Hemoglobin Concent 31.7L, Red Cell Distribution Width 11.8, Platelet Count 400, Mean Platelet Volume 6.7, Neutrophils (%) (Auto) 69.9, Lymphocytes (%) (Auto) 15.3L, Monocytes (%) (Auto) 12.3H, Eosinophils (%) (Auto) 1.4, Basophils (%) ( Auto) 1.1, Prothrombin Time 23.7H, Prothromb Time International Ratio 2.2H, Sodium Level 134L, Potassium Level 4.2, Chloride Level 99, Carbon Dioxide Level 27, Anion Gap 8, Blood Urea Nitrogen 12, Creatinine 0.8, Estimat Glomerular Filtration Rate > 60, Glucose Level 113H, Calcium Level 9.1 Current Medications Medications (Trade) Dose Ordered Sig/Rinku Route PRN Reason Start Time Stop Time Status Last Admin Dose Admin Acetaminophen (Tylenol) 650 mg Q4H PRN ORAL fever 10/30/17 06:45 11/29/17 06:44 Acetaminophen/ Hydrocodone Bitart ([place] 5/325) 1 tab Q4H PRN ORAL Moderate Pain (Pain Scale 4-6) 11/01/17 12:15 11/08/17 12:14 11/04/17 18:07 Al Hydroxide/Mg Hydroxide (Mylanta II) 30 ml Q6H PRN ORAL dyspepsia 10/30/17 06:45 11/29/17 06:44 Dextrose (Dextrose 50%) STAT PRN IV Hypoglycemia 10/30/17 06:45 11/29/17 06:44 Lorazepam (Ativan 2mg/ml 1ml) 0.5 mg Q4H PRN IV For Anxiety 10/30/17 06:45 11/06/17 06:44 Morphine Sulfate (Morphine Sulfate) 1 mg Q4H PRN IVP Severe Pain (Pain Scale 7-10) 11/01/17 12:30 11/06/17 06:44 Ondansetron HCl (Zofran) 4 mg Q6H PRN IVP Nausea & Vomiting 10/30/17 06:45 11/29/17 06:44 Polyethylene Glycol (Miralax) 17 gm HSPRN PRN ORAL Constipation 10/30/17 06:45 11/29/17 06:44 Warfarin Sodium (Coumadin per pharmacy) 1 ea DAILY PRN MISC Per rx protocol 10/30/17 20:45 11/29/17 20:44 Warfarin Sodium (Coumadin) 7.5 mg COUMADIN ONCE ORAL 11/05/17 17:00 11/05/17 17:01 Zolpidem Tartrate (Ambien) 5 mg HSPRN PRN ORAL Insomnia 10/30/17 06:45 11/06/17 06:44 DANAE SHINE Nov 05, 2017 11:33
[2017-11-05 12:00] VITALS: BP 135/70
--- NOTE | 2017-11-05 15:18 | General Progress Note ---
Assessment/Plan Problem List: (1) Pulmonary infarct ICD Codes: I26.99 - Other pulmonary embolism without acute cor pulmonale SNOMED: 74903760 (2) Pulmonary emboli ICD Codes: I26.99 - Other pulmonary embolism without acute cor pulmonale SNOMED: 27285902 Qualifiers: Qualified Codes: I26.99 - Other pulmonary embolism without acute cor pulmonale (3) Bladder mass ICD Codes: N32.89 - Other specified disorders of bladder SNOMED: 947632508 Status: stable, progressing, tolerating diet Assessment/Plan anticoag, dc if clear by uro and heme Subjective Constitutional: Reports: weakness Allergies: Coded Allergies: No Known Allergies (Unverified , 10/30/17) All Systems: reviewed and negative except above Subjective calm in bed Objective Last 24 Hour Vital Signs Date Time Temp Pulse Resp B/P (MAP) Pulse Ox O2 Delivery O2 Flow Rate FiO2 11/05/17 12:00 97.1 76 20 135/70 97 Room Air 11/05/17 08:00 97.3 80 19 140/82 97 Room Air 11/05/17 08:00 85 11/05/17 07:23 80 18 Room Air 21 11/05/17 04:00 76 11/05/17 00:00 88 11/04/17 20:48 72 11/04/17 20:35 98.1 77 18 126/71 93 Room Air 11/04/17 19:57 86 18 Room Air 21 11/04/17 16:00 97.5 75 19 119/58 97 Room Air 11/04/17 16:00 93 Intake and Output 11/04/17 11/05/17 19:00 07:00 Intake Total 800 ml 120 ml Output Total 400 ml Balance 800 ml -280 ml Intake Oral 800 ml 120 ml Output Urine Total 400 ml # Voids 2 1 Laboratory Tests 11/05/17 08:15: White Blood Count 7.9, Red Blood Count 5.36, Hemoglobin 15.0, Hematocrit 47.4, Mean Corpuscular Volume 88, Mean Corpuscular Hemoglobin 28.1, Mean Corpuscular Hemoglobin Concent 31.7L, Red Cell Distribution Width 11.8, Platelet Count 400, Mean Platelet Volume 6.7, Neutrophils (%) (Auto) 69.9, Lymphocytes (%) (Auto) 15.3L, Monocytes (%) (Auto) 12.3H, Eosinophils (%) (Auto) 1.4, Basophils (%) ( Auto) 1.1, Prothrombin Time 23.7H, Prothromb Time International Ratio 2.2H, Sodium Level 134L, Potassium Level 4.2, Chloride Level 99, Carbon Dioxide Level 27, Anion Gap 8, Blood Urea Nitrogen 12, Creatinine 0.8, Estimat Glomerular Filtration Rate > 60, Glucose Level 113H, Calcium Level 9.1 Height (Feet): 5 Height (Inches): 10.00 Weight (Pounds): 180 General Appearance: alert EENT: normal ENT inspection Neck: normal alignment Cardiovascular: normal peripheral pulses, normal rate, regular rhythm Respiratory/Chest: chest wall non-tender, lungs clear, normal breath sounds Abdomen: normal bowel sounds, non tender, soft Extremities: normal inspection Edema: no edema noted Arm (L), no edema noted Arm (R), no edema noted Leg (L), no edema noted Leg (R), no edema noted Pedal (L), no edema noted Pedal (R), no edema noted Generalized Neurologic: responsive, motor weakness Skin: normal pigmentation, warm/dry YUMIKO PARNELL Nov 05, 2017 15:18
[2017-11-05 16:00] VITALS: BP 139/60
[2017-11-05] MEDS: Norco 5mg/325mg tab ORAL PRN (16:20)
[2017-11-05] MEDS ORDERED: Warfarin Sodium 7.5mg ORAL ONE (17:00)
[2017-11-05] MEDS ORDERED: COUMADIN5 MG ORAL (17:07)
[2017-11-05] MEDS ORDERED: NORCO 5-325 TA1 EAC1 ORAL (17:08)
--- NOTE | 2017-11-05 17:52 | Consultation ---
History of Present Illness General Date patient seen: Nov 05, 2017 Time patient seen: 12:30 Chief Complaint: Chest Pain Referring physician: Dr. Florence Reason for Consultation: ABDOMINAL PAIN Present Illness HPI 62 yo male with left leg swelling, dx with DVT and pulmonary emboli. On workup found to have questionable bladder mass. Patient is healthy, non smoker and never reported hematuria. Allergies: Coded Allergies: No Known Allergies (Unverified , 10/30/17) Medication History Scheduled Cephalexin* (Keflex*), 500 MG ORAL EVERY 12 HOURS, (Reported) Patient History History Provided By: Patient Healthcare decision maker Resuscitation status Advanced Directive on File Review of Systems All Other Systems: negative except mentioned in HPI Physical Exam General Appearance: no apparent distress HEENT: atraumatic Neck: supple Respiratory/Chest: lungs clear Cardiovascular/Chest: normal rate, regular rhythm Abdomen: non tender, soft Skin Exam: warm/dry Neurologic: alert, oriented x 3 Last 24 Hour Vital Signs Date Time Temp Pulse Resp B/P (MAP) Pulse Ox O2 Delivery O2 Flow Rate FiO2 11/05/17 12:00 97.1 76 20 135/70 97 Room Air 11/05/17 08:00 97.3 80 19 140/82 97 Room Air 11/05/17 08:00 85 11/05/17 07:23 80 18 Room Air 21 11/05/17 04:00 76 11/05/17 00:00 88 11/04/17 20:48 72 11/04/17 20:35 98.1 77 18 126/71 93 Room Air 11/04/17 19:57 86 18 Room Air 21 Intake and Output 11/04/17 11/05/17 19:00 07:00 Intake Total 800 ml 120 ml Output Total 400 ml Balance 800 ml -280 ml Intake Oral 800 ml 120 ml Output Urine Total 400 ml # Voids 2 1 Laboratory Tests Test 11/05/17 08:15 White Blood Count 7.9 K/UL (4.8-10.8) Red Blood Count 5.36 M/UL (4.70-6.10) Hemoglobin 15.0 G/DL (14.2-18.0) Hematocrit 47.4 % (42.0-52.0) Mean Corpuscular Volume 88 FL (80-99) Mean Corpuscular Hemoglobin 28.1 PG (27.0-31.0) Mean Corpuscular Hemoglobin Concent 31.7 G/DL (32.0-36.0) L Red Cell Distribution Width 11.8 % (11.6-14.8) Platelet Count 400 K/UL (150-450) Mean Platelet Volume 6.7 FL (6.5-10.1) Neutrophils (%) (Auto) 69.9 % (45.0-75.0) Lymphocytes (%) (Auto) 15.3 % (20.0-45.0) L Monocytes (%) (Auto) 12.3 % (1.0-10.0) H Eosinophils (%) (Auto) 1.4 % (0.0-3.0) Basophils (%) (Auto) 1.1 % (0.0-2.0) Prothrombin Time 23.7 SEC (9.30-11.50) H Prothromb Time International Ratio 2.2 (0.9-1.1) H Sodium Level 134 MMOL/L (136-145) L Potassium Level 4.2 MMOL/L (3.5-5.1) Chloride Level 99 MMOL/L (98-107) Carbon Dioxide Level 27 MMOL/L (21-32) Anion Gap 8 mmol/L (5-15) Blood Urea Nitrogen 12 mg/dL (7-18) Creatinine 0.8 MG/DL (0.55-1.30) Estimat Glomerular Filtration Rate > 60 mL/min (>60) Glucose Level 113 MG/DL (74-106) H Calcium Level 9.1 MG/DL (8.5-10.1) Height (Feet): 5 Height (Inches): 10.00 Weight (Pounds): 180 Medications Current Medications Medications (Trade) Dose Ordered Sig/Rinku Route PRN Reason Start Time Stop Time Status Last Admin Dose Admin Acetaminophen (Tylenol) 650 mg Q4H PRN ORAL fever 10/30/17 06:45 11/29/17 06:44 Acetaminophen/ Hydrocodone Bitart ([place] 5/325) 1 tab Q4H PRN ORAL Moderate Pain (Pain Scale 4-6) 11/01/17 12:15 11/08/17 12:14 11/05/17 16:20 Al Hydroxide/Mg Hydroxide (Mylanta II) 30 ml Q6H PRN ORAL dyspepsia 10/30/17 06:45 11/29/17 06:44 Dextrose (Dextrose 50%) STAT PRN IV Hypoglycemia 10/30/17 06:45 11/29/17 06:44 Lorazepam (Ativan 2mg/ml 1ml) 0.5 mg Q4H PRN IV For Anxiety 10/30/17 06:45 11/06/17 06:44 Morphine Sulfate (Morphine Sulfate) 1 mg Q4H PRN IVP Severe Pain (Pain Scale 7-10) 11/01/17 12:30 11/06/17 06:44 Ondansetron HCl (Zofran) 4 mg Q6H PRN IVP Nausea & Vomiting 10/30/17 06:45 11/29/17 06:44 Polyethylene Glycol (Miralax) 17 gm HSPRN PRN ORAL Constipation 10/30/17 06:45 11/29/17 06:44 Warfarin Sodium (Coumadin per pharmacy) 1 ea DAILY PRN MISC Per rx protocol 10/30/17 20:45 11/29/17 20:44 Zolpidem Tartrate (Ambien) 5 mg HSPRN PRN ORAL Insomnia 10/30/17 06:45 11/06/17 06:[address]: reviewed images, likely intravesical prostatic lobe vs. bladder mass Assessment/Plan Status: stable Assessment/Plan 62 yo male with DVT and PE on coumadin. Imaging reviewed and given healthy history lack of smoking and appearance of mass on CT favor more likely is intravesical lobe of prostate rather than bladder mass. Either way, with no hematuria would not recommend intervening with cystoscopy until 90 day course of anti-coagulation is done. Intravesical prostatic lobe is very common anatomical variant. If patient were to start having gross hematuria, may then request coming off anti-coagulation, getting IVC filter and then pursuing cysto and possible biopsy/resection. 1. f/u office 3 months for cystoscopy Leonid Thakur M.D. Nov 05, 2017 17:51
--- NOTE | 2017-11-05 23:50 | General Progress Note ---
Assessment/Plan Assessment/Plan #. Pulmonary emboli, currently is on heparin drip. --> INr is between 2-3, at therapeutic levels, will need 3 mo of it, continue until completed --> Monitor closely. #. Posterior wall of bladder mass potentially --> eval with uro inpatient or outpatient #. Coagulopathy, secondary to use of Coumadin. --> Monitor INR #. Anemia, secondary to chronic disease, mild. --> Hemoglobin has been WNL, does not need blood transfusion today --> Trend cbc daily. --> Hemoglobin goal >7 Subjective Date patient seen: Nov 05, 2017 Constitutional: Denies: no symptoms, chills, diaphoresis, fever, malaise, weakness, other HEENT: Denies: no symptoms, eye pain, blurred vision, tearing, double vision, ear pain, ear discharge, nose pain, nose congestion, throat pain, throat swelling, mouth pain, mouth swelling, other Cardiovascular: Denies: no symptoms, chest pain, edema, irregular heart rate, lightheadedness, palpitations, syncope, other Respiratory: Denies: no symptoms, cough, orthopnea, shortness of breath, SOB with excertion, SOB at rest, sputum, stridor, wheezing, other Gastrointestinal/Abdominal: Denies: no symptoms, abdomen distended, abdominal pain, black stools, tarry stools, blood in stool, constipated, diarrhea, difficulty swallowing, nausea, poor appetite, poor fluid intake, rectal bleeding , vomiting, other Hematologic/Lymphatic: Reports: anemia Allergies: Coded Allergies: No Known Allergies (Unverified , 10/30/17) Subjective No new events overnight. No fever or chills. Objective Last 24 Hour Vital Signs Date Time Temp Pulse Resp B/P (MAP) Pulse Ox O2 Delivery O2 Flow Rate FiO2 11/05/17 16:00 97.3 81 20 139/60 98 Room Air 11/05/17 12:00 97.1 76 20 135/70 97 Room Air 11/05/17 08:00 97.3 80 19 140/82 97 Room Air 11/05/17 08:00 85 11/05/17 07:23 80 18 Room Air 21 11/05/17 04:00 76 11/05/17 00:00 88 Intake and Output 11/04/17 11/05/17 19:00 07:00 Intake Total 800 ml 120 ml Output Total 400 ml Balance 800 ml -280 ml Intake Oral 800 ml 120 ml Output Urine Total 400 ml # Voids 2 1 Laboratory Tests 11/05/17 08:15: White Blood Count 7.9, Red Blood Count 5.36, Hemoglobin 15.0, Hematocrit 47.4, Mean Corpuscular Volume 88, Mean Corpuscular Hemoglobin 28.1, Mean Corpuscular Hemoglobin Concent 31.7L, Red Cell Distribution Width 11.8, Platelet Count 400, Mean Platelet Volume 6.7, Neutrophils (%) (Auto) 69.9, Lymphocytes (%) (Auto) 15.3L, Monocytes (%) (Auto) 12.3H, Eosinophils (%) (Auto) 1.4, Basophils (%) ( Auto) 1.1, Prothrombin Time 23.7H, Prothromb Time International Ratio 2.2H, Sodium Level 134L, Potassium Level 4.2, Chloride Level 99, Carbon Dioxide Level 27, Anion Gap 8, Blood Urea Nitrogen 12, Creatinine 0.8, Estimat Glomerular Filtration Rate > 60, Glucose Level 113H, Calcium Level 9.1 Height (Feet): 5 Height (Inches): 10.00 Weight (Pounds): 180 Brian Francis Nov 05, 2017 23:50
--- NOTE | 2017-11-06 17:27 | Discharge Summary ---
Discharge Summary Hospital Course Date of Admission Oct 30, 2017 at 05:20 Date of Discharge Nov 05, 2017 at 18:40 Admitting Diagnosis PULMONARY EMBOLISM HPI Cameron Dillon is a 62 year old male who was admitted on Oct 30, 2017 at 05: 20 for Pulmonary Embolism Hospital Course [id number] Discharge Discharge Disposition Patient was discharged to Home (01) Discharge Diagnoses: Monika Dalton NP Nov 06, 2017 17:27
--- NOTE | 2017-11-07 03:45 | Discharge Summary 2 SIG ---
DATE OF ADMISSION: 10/30/2017 DATE OF DISCHARGE: 11/05/2017 CONSULTANTS: 1. Crow Arreola M.D. 2. Kristofer Nunes M.D. 3. Brian Francis M.D. 4. Ramon Maldonado D.P.M. 5. Leonid Thakur M.D. BRIEF HOSPITAL COURSE: The patient is a 62-year-old male, who lives at home presented to ED complaining of substernal chest pain. He has no medical history and stated he was at [facility] a week prior for swelling and discoloration of the left leg. He was given aspirin and nitroglycerin by EMS without much relief. On evaluation at ED, CAT scan showed a small to moderate bilateral pulmonary emboli. EKG was in normal sinus rhythm. He was admitted for acute PE and was started on heparin drip and Coumadin. He was complaining of pain. He was given muscle relaxant, Flexeril. He had a venous duplex of lower extremity that was positive for acute DVT on the left lower leg. He was given [place] for pain management, reluctant to take morphine. Urine toxicology was negative. He had an echocardiogram done, which showed ejection fraction of 55% to 60% with no LVH. He complained of injury to the left hallux. Podiatry evaluation showed deep tissue injury has resolved. The patient has neurapraxia from shoe gear and edema restricting his left lower extremity range of motion. He was advised he can massage his foot, but not the leg as a treatment, continue to walk as tolerated. He will eventually need physical therapy. He was continued on anticoagulation. He complained of abdominal pain. Abdominal and pelvic CT showed a mass on the posterior wall of the bladder. Urologic evaluation was done. The patient is a nonsmoker and have never reported any hematuria. Appearance of CT was reviewed. Appearance more likely intravesical lobe of prostate rather than a bladder mass. He was recommended cystoscopy after finishing course of anticoagulation. Advised, however, if eventually develops gross hematuria, may then eventually be taken off anticoagulation to pursue cystoscopy and possible biopsy/resection. The patient was discharged home to continue three months of Coumadin and to follow up with courtesy driver as an outpatient. FINAL DIAGNOSES: 1. Acute pulmonary embolism. 2. Acute deep venous thrombosis, left leg. 3. Posterior bladder wall mass. 4. Coagulopathy, secondary to Coumadin use. 5. Anemia, secondary to chronic disease. 6. Deep tissue injury in the left hallux, resolved. 7. Neurapraxia. 8. Chest pain, secondary to pulmonary embolism. DISPOSITION: The patient was discharged home. DISCHARGE MEDICATIONS: Advised to continue with Coumadin and to follow up for Coumadin dosing. DISCHARGE INSTRUCTIONS: Follow up with courtesy driver for Coumadin dosing and repeat imaging. Followup with urologist for evaluation of bladder mass. Jama Florence D.O. I have been assigned to dictate discharge summary on this account and I was not involved in the patient's management. Monika Dalton N.P. DR: ALEKSANDER JOB#: [id number] CC: BROOKE
== END 2017-11-05 18:40 | disposition home or self-care (01) | DRG 134 ==
LOC: EDBD 03:06 → EMR 03:15 → 2E 05:20 → EDBEDREQ 05:28
DX: I26.99 Other pulmonary embolism without acute cor pulmonale (principal); N32.89 Other specified disorders of bladder; I82.4Z2 Acute embolism and thrombosis of unspecified deep veins of left distal lower extremity; D63.8 Anemia in other chronic diseases classified elsewhere; T14.8XXA Other injury of unspecified body region, initial encounter; R07.89 Other chest pain; S94.92XA Injury of unspecified nerve at ankle and foot level, left leg, initial encounter; X58.XXXA Exposure to other specified factors, initial encounter; R60.9 Edema, unspecified
CPT/HCPCS: 36415; 71045; 71275; 74177; 80048; 80053; 80061; 80307; 81003; 81241; 82140; 82378; 82550; 82553; 83020; 84153; 84154; 84484; 85007; 85025; 85060; 85300; 85303; 85305; 85610; 85730; 86147; 93005; 93306; 93925; 93970; 94664; 99285; J2405

== ENCOUNTER 2020-03-21 13:36 | Emergency (ER) | payer MEDICAID, OTHER ==
[~2020-03-21] VITALS: Ht 188 cm; Wt 83.9 kg
[~2020-03-21 13:36] MED LIST: CEPHALEXIN500 MG ORAL; COUMADIN5 MG ORAL; NKM; NORCO 5-325 TA1 EAC1 ORAL
[2020-03-21] MEDS ORDERED: Omnipaque 350 100ml vial INJ PRN (14:30)
--- NOTE | 2020-03-21 14:33 | Emergency Room Report ---
History of Present Illness General Chief Complaint: Upper Respiratory Illness Source: Patient Present Illness HPI Patient is a 65-year-old male past medical history of DVT and PE 2 years ago on Coumadin who presents to the ER complaining of left leg pain for the past several days. He states that he was massaging it in the shower and now complains of chest tightness and shortness of breath. He says that it is worse on movement and deep inspiration. Patient states that he has forgotten several doses of his Coumadin. He denies fever or chills. He denies any cough. He denies any recent travel. He denies any abdominal pain nausea or vomiting. Patient is declining any pain medication at this time. Allergies: Coded Allergies: No Known Allergies (Unverified , 10/30/17) COVID-19 Screening Contact w/high risk pt: No Recent Travel to affected area: No Experienced COVID-19 symptoms?: No COVID-19 Testing performed [employer]IN[employer]OX: No Patient History Past Medical History: other - DVT/PE Past Surgical History: none Social History: Denies: smoking, alcohol use, drug use Review of Systems All Other Systems: negative except mentioned in HPI Physical Exam Vital Signs Date Time Temp Pulse Resp B/P (MAP) Pulse Ox O2 Delivery O2 Flow Rate FiO2 03/21/20 14:04 98.2 76 20 143/94 (110) 95 Room Air Sp02 EP Interpretation: reviewed, normal General Appearance: no apparent distress, alert, GCS 15, non-toxic Head: normocephalic, atraumatic Eyes: bilateral eye normal inspection, bilateral eye PERRL ENT: hearing grossly normal, normal pharynx, no angioedema, normal voice Neck: full range of motion, supple/symm/no masses Respiratory: chest non-tender, lungs clear, normal breath sounds, speaking full sentences Cardiovascular #1: regular rate, rhythm, no edema Gastrointestinal: normal bowel sounds, non tender, soft, non-distended, no guarding, no rebound Rectal: deferred Genitourinary: normal inspection, no CVA tenderness Musculoskeletal: other - Left lower leg slightly more swollen than right with mild left inner thigh tenderness to palpation, no erythema Neurologic: alert, motor strength/tone normal, oriented x3, sensory intact, responsive, speech normal Psychiatric: no suicidal/homicidal ideation Skin: no rash Lymphatic: no adenopathy Medical Decision Making Diagnostic Impression: Primary Impression: Chest pain ER Course Patient presents with pleuritic chest pain. Patient has history of DVT and PE on Coumadin states he missed a couple doses. INR is subtherapeutic at less than 2. Patient's ultrasound demonstrates no evidence for DVT. Patient's CT demonstrates no evidence for pulmonary embolism. Troponin negative x1. Patient declining any pain medication. Patient given 1 L of IV fluids and 162 aspirin. I discussed the case with Dr. Robert who will transfer the patient to [facility]. At 5 PM I updated the patient on his ER work-up and transfer. Laboratory Tests Test 03/21/20 14:50 03/21/20 15:35 White Blood Count 8.4 K/UL (4.8-10.8) Red Blood Count 5.39 M/UL (4.70-6.10) Hemoglobin 14.9 G/DL (14.2-18.0) Hematocrit 49.1 % (42.0-52.0) Mean Corpuscular Volume 91 FL (80-99) Mean Corpuscular Hemoglobin 27.6 PG (27.0-31.0) Mean Corpuscular Hemoglobin Concent 30.3 G/DL (32.0-36.0) L Red Cell Distribution Width 12.7 % (11.6-14.8) Platelet Count 292 K/UL (150-450) Mean Platelet Volume 7.7 FL (6.5-10.1) Neutrophils (%) (Auto) 65.5 % (45.0-75.0) Lymphocytes (%) (Auto) 23.1 % (20.0-45.0) Monocytes (%) (Auto) 8.5 % (1.0-10.0) Eosinophils (%) (Auto) 0.6 % (0.0-3.0) Basophils (%) (Auto) 2.3 % (0.0-2.0) H Prothrombin Time 19.0 SEC (9.30-11.50) H Prothrombin Time INR 1.8 (0.9-1.1) H Activated Partial Thromboplast Time 28 SEC (23-33) Sodium Level 138 MMOL/L (136-145) Potassium Level 4.1 MMOL/L (3.5-5.1) Chloride Level 101 MMOL/L (98-107) Carbon Dioxide Level 27 MMOL/L (21-32) Anion Gap 10 mmol/L (5-15) Blood Urea Nitrogen 10 mg/dL (7-18) Creatinine 0.9 MG/DL (0.55-1.30) Estimated Glomerular Filtration Rate > 60 mL/min (>60) Glucose Level 89 MG/DL (74-106) Lactic Acid Level 1.20 mmol/L (0.4-2.0) Calcium Level 8.9 MG/DL (8.5-10.1) Magnesium Level 2.0 MG/DL (1.8-2.4) Total Bilirubin 0.4 MG/DL (0.2-1.0) Aspartate Amino Transferase (AST) 19 U/L (15-37) Alanine Aminotransferase (ALT) 20 U/L (12-78) Alkaline Phosphatase 66 U/L (46-116) Total Creatine Kinase 134 U/L (26-308) Troponin I 0.000 ng/mL (0.000-0.056) Pro-B-Type Natriuretic Peptide 34 pg/mL (0-125) Total Protein 7.4 G/DL (6.4-8.2) Albumin 3.8 G/DL (3.4-5.0) Globulin 3.6 g/dL Albumin/Globulin Ratio 1.1 (1.0-2.7) Lipase 65 U/L (73-393) L Urine Color Pale yellow Urine Appearance Clear Urine pH 6 (4.5-8.0) Urine Specific [place] 1.015 (1.005-1.035) Urine Protein Negative (NEGATIVE) Urine Glucose (UA) Negative (NEGATIVE) Urine Ketones 1+ (NEGATIVE) H Urine Blood Negative (NEGATIVE) Urine Nitrite Negative (NEGATIVE) Urine Bilirubin Negative (NEGATIVE) Urine Urobilinogen Normal MG/DL (0.0-1.0) Urine Leukocyte Esterase 1+ (NEGATIVE) H Urine RBC 0-2 /HPF (0 - 0) H Urine WBC 0-2 /HPF (0 - 0) Urine Squamous Epithelial Cells None /LPF (NONE/OCC) Urine Bacteria None /HPF (NONE) EKG Diagnostic Results EKG Time: 15:12 EP Interpretation: MD Demetrice Rate: normal Rhythm: NSR ST Segments: no acute changes ASA given to the pt in ED: No Rhythm Strip Diag. Results Rhythm Strip Time: 14:33 EP Interpretation: yes - MD Demetrice Rate: 69 Rhythm: NSR, no PVC's, no ectopy Chest X-Ray Diagnostic Results Chest X-Ray Diagnostic Results : Chest X-Ray Ordered: Yes # of Views/Limited/Complete: 1 View Indication: Chest Pain EP Interpretation: Yes Interpretation: no consolidation, no effusion, no pneumothorax Impression: No acute disease Electronically Signed by: Ember Suresh MD Last Vital Signs Date Time Temp Pulse Resp B/P (MAP) Pulse Ox O2 Delivery O2 Flow Rate FiO2 03/21/20 14:04 98.2 76 20 143/94 (110) 95 Room Air Disposition: ADMITTED INPATIENT - CT Community Condition: Critical Physician Consult: Ember Jimenes M.D. Mar 21, 2020 14:33
[2020-03-21 15:29] LABS: BASOPHILS % (AUTO) 2.3 % (0.0-2.0); EOSINOPHILS % (AUTO) 0.6 % (0.0-3.0); HEMATOCRIT 49.1 % (42.0-52.0); HEMOGLOBIN 14.9 G/DL (14.2-18.0); LYMPHOCYTES % (AUTO) 23.1 % (20.0-45.0); MEAN CORPUSCULAR VOLUME 91 FL (80-99); MONOCYTES % (AUTO) 8.5 % (1.0-10.0); NEUTROPHILS % (AUTO) 65.5 % (45.0-75.0); PLATELET COUNT 292 K/UL (150-450); RED BLOOD COUNT 5.39 M/UL (4.70-6.10); RED CELL DISTRIBUTION WIDTH 12.7 % (11.6-14.8); WHITE BLOOD COUNT 8.4 K/UL (4.8-10.8)
--- NOTE | 2020-03-21 15:30 | NUR ---
ED Nurse Note:pt. came from home with possible blood clott, c/o left chest pain and also left thigh pain and swelling, was placed on monitor car operator, [facility], given IV fluids
[2020-03-21 15:44] LABS: ANION GAP 10 mmol/L (5-15); BLOOD UREA NITROGEN 10 mg/dL (7-18); CALCIUM 8.9 MG/DL (8.5-10.1); CARBON DIOXIDE 27 MMOL/L (21-32); CHLORIDE 101 MMOL/L (98-107); CREATININE 0.9 MG/DL (0.55-1.30); POTASSIUM 4.1 MMOL/L (3.5-5.1); SODIUM 138 MMOL/L (136-145)
[2020-03-21 15:46] LABS: INR 1.8 (0.9-1.1)
[2020-03-21 15:58] LABS: APPEARANCE,URINE CLEAR; BILIRUBIN, URINE NEGATIVE (NEGATIVE); COLOR,URINE PALE YELLOW; GLUCOSE, URINE (UA) NEGATIVE (NEGATIVE); KETONES,URINE 1+ (NEGATIVE); LEUKOCYTE ESTERASE ,URINE 1+ (NEGATIVE); NITRITE,URINE NEGATIVE (NEGATIVE); PH,URINE 6 (4.5-8.0); PROTEIN,URINE NEGATIVE (NEGATIVE); UROBILINOGEN,URINE NORMAL MG/DL (0.0-1.0)
[2020-03-21 15:58] LABS: ALBUMIN 3.8 G/DL (3.4-5.0); ALBUMIN/GLOBULIN RATIO 1.1 (1.0-2.7); ALKALINE PHOSPHATASE 66 U/L (46-116); ASPARTATE AMINO TRANSFERASE 19 U/L (15-37); BILIRUBIN,TOTAL 0.4 MG/DL (0.2-1.0); CREATINE KINASE 134 U/L (26-308)
[2020-03-21 16:13] LABS: ALANINE AMINOTRANSFERASE 20 U/L (12-78)
[2020-03-21 16:15] VITALS: BP 131/77
--- NOTE | 2020-03-21 16:17 | Diagnostic Imaging Report ---
Indication: Shortness of breath Technique: One view of the chest Comparison: 10/30/2017 Findings: Lungs and pleural spaces are clear. Heart size is normal. No significant change Impression: No acute process
--- NOTE | 2020-03-21 16:21 | NUR ---
ED Nurse Note:pt. had CT scan and vascular study done
--- NOTE | 2020-03-21 16:35 | Diagnostic Imaging Report ---
Indication: Left leg pain, history of deep venous thrombosis Technique: Grayscale and duplex images of the bilateral lower extremity veins Comparison: 10/31/2017 Findings: Bilaterally, grayscale and duplex images demonstrate no evidence of intraluminal thrombus. Normal phasic Doppler waveforms, demonstrating normal augmentation response and no evidence of valvular insufficiency. Greater saphenous vein(s) and tibial veins are patent. Normal compressibility. Previously reported left popliteal thrombus is no longer evident Impression: Negative for evidence of lower extremity deep venous thrombosis bilaterally Note interim resolution of previously demonstrated acute left popliteal thrombus scribed on 10/31/2017
--- NOTE | 2020-03-21 16:48 | Diagnostic Imaging Report ---
ndication: Shortness of breath and chest pain Technique: IV administration nonionic contrast. Spiral acquisitions obtained from the lung bases to the lung apices. Multiplanar and 3-D reconstructions were generated. Total dose length product 510 mGycm. CTDIvol(s) one, 86, 5, 10 mGy. Dose reduction achieved using automated exposure control Comparison: 10/30/2017 Findings: Pulmonary arterial opacification is suboptimal. This precludes exclusion of small peripheral emboli. No definite large vessel central emboli demonstrated. Normal caliber pulmonary arteries. No evidence of thoracic aortic aneurysm or dissection. Previously demonstrated lower lobe emboli are no longer evident. The lungs are clear. No infiltrates, effusions, congestion, masses, or nodules. Some scarring or atelectasis is seen in the inferior anterior lingula. No mediastinal or hilar mass or adenopathy. Normal heart size. No pericardial effusion. No axillary or chest wall mass or adenopathy. Hypoattenuating nodule is seen in the lower pole of left thyroid lobe, measures 10 mm long axis dimension, unchanged. Included upper abdominal anatomy demonstrates bilateral renal cysts. Impression: Somewhat limited exam, due to suboptimal contrast opacification of pulmonary arteries. No gross large vessel central pulmonary emboli. Note interim resolution of previously demonstrated bilateral lower lobe emboli No acute or significant abnormality demonstrated 1 cm left lower pole thyroid nodule. Stable since 10/30/2017. Nonetheless, consider further evaluation with sonography if this has not been previously worked up The CT scanner at [facility] is accredited by the [employer] and the scans are performed using protocols designed to limit radiation exposure to as low as reasonably achievable to attain images of sufficient resolution adequate for diagnostic evaluation.
[2020-03-21] MEDS ORDERED: Aspirin Baby 81mg ORAL ONE (17:15)
[2020-03-21 17:28] VITALS: BP 135/77
--- NOTE | 2020-03-21 17:28 | NUR ---
ED Nurse Note:called [place] [facility] with report -given to Nandini
[2020-03-21 17:52] VITALS: BP 135/77
== END 2020-03-21 17:30 | disposition short-term general hospital (02) ==
LOC: EMR 14:33
DX: R07.9 Chest pain, unspecified (principal); Z86.718 Personal history of other venous thrombosis and embolism; Z86.711 Personal history of pulmonary embolism; Z79.01 Long term (current) use of anticoagulants; M79.605 Pain in left leg; E04.1 Nontoxic single thyroid nodule; N28.1 Cyst of kidney, acquired
CPT/HCPCS: 36415; 71045; 71275; 80053; 81003; 82550; 83605; 83690; 83735; 83880; 84484; 85025; 85610; 85730; 87040; 93005; 93970; 96360; J7030; Q9967; Z7502; 99285